=== PATIENT | female | born 1980 | race Caucasian/White ===

== ENCOUNTER 2022-05-15 08:41 | Emergency (ER) | payer BC, SELFPAY ==
--- NOTE | 2022-05-15 08:53 | EXP.UTC ---
Discharge Plan Disposition Patient Disposition: Home, Self-Care Condition: Good Prescriptions Prescriptions: New amoxicillin [amoxicillin] 875 mg tablet 875 mg PO Q12H Qty: 20 0RF methylprednisolone 4 mg Tablets,Dose Pack 4 mg PO DIRECTED Qty: 21 0RF ondansetron 4 mg Tablet,Disintegrating 4 mg PO Q8H PRN (Reason: Nausea) Qty: 20 0RF Referrals Follow up/Referrals: Provider,Referral, MD [Primary Care Provider] - See instructions Activity Restrictions/Add. Instructions Additional Instructions/Restrictions: Drink plenty of fluids. Take tylenol or ibuprofen for pain or fever. Take the medications as directed. Follow up with your regular doctor. GO TO THE ER FOR ANY WORSENING SYMPTOMS Clinical Impressions Clinical Impression: Strep throat Instructions Patient Instructions: Strep Throat, DI for Strep Throat Discharge ED [place] [facility] [place] General Stated complaint: Sore throat, tired, DO, BA Time Seen by Provider: 05/15/22 08:53 History of Present Illness Provider Complaint: She states that for the past 2 days she has had a sore throat, worsening fatigue, chills, and malaise. Her son was diagnosed with strep throat earlier this week. Related Data Previous Rx's Medication Instructions Recorded amoxicillin 875 mg tablet 875 mg PO Q12H #20 tabs 05/15/22 methylprednisolone 4 mg tablets in 4 mg PO DIRECTED #21 tabs 05/15/22 a dose pack ondansetron 4 mg disintegrating 4 mg PO Q8H PRN Nausea #20 tabs 05/15/22 tablet Allergies Allergy/AdvReac Type Severity Reaction Status Date / Time No Known Allergies Allergy Verified 05/15/22 09:12 [facility] Social History Smoking Status: Current every day smoker alcohol intake: never current occupational status: employed Travel in the last 8 weeks: None ROS Obtained: Yes All systems reviewed & no additional complaints except as documented Constitutional Constitutional: Reports chills and Reports fever(s) Eyes Eyes: Denies eye discharge ENT Ears, Nose, Mouth, and Throat: Reports as per HPI Cardiovascular Cardiovascular: Denies chest pain Respiratory Respiratory: Denies chest congestion and Reports cough Gastrointestinal Gastrointestingal: Reports nausea; Denies abdominal pain, constipation, cramping, diarrhea or vomiting Musculoskeletal Musculoskeletal: Denies arthralgias Integumentary/Breasts Skin/Breast: Denies rash Neurologic Neurologic: Denies paresthesias Physical Exam General General appearance: alert and in no apparent distress Head Head exam: atraumatic, normocephalic and normal inspection Eye Eye exam: Present normal appearance, PERRL and EOMI ENT ENT exam: Present mucous membranes moist and normal external ear exam Expanded ENT Exam TM/Canal exam: Bilateral TM: erythema and bulging Nose exam: Absent sinus tenderness Mouth exam: Present normal external inspection; Absent drooling Teeth exam: Present normal inspection Throat exam: Present tonsillar erythema, tonsillomegaly and tonsillar exudate Neck Neck exam: Present normal inspection, full ROM and trachea midline; Absent tenderness, meningismus or lymphadenopathy Chest Chest inspection: Present normal inspection and symmetric chest wall rise; Absent tenderness Respiratory Respiratory exam: Present normal lung sounds bilaterally; Absent respiratory distress, wheezes or stridor Cardiovascular Cardiovascular exam: Present regular rate and normal rhythm; Absent systolic murmur or diastolic murmur Abdominal Exam Abdominal exam: Present soft and normal bowel sounds; Absent distention, tenderness, guarding, rebound or rigidity Extremities Exam Extremities exam: Present normal inspection and normal capillary refill; Absent calf tenderness Back Exam Back exam: Present normal inspection and full ROM; Absent tenderness, CVA tenderness (R) or CVA tenderness (L) Neurological Exam Neurological exam:
[2022-05-15 09:10] VITALS: BP 155/75; PULSE 102; RESP 18; TEMP 37; O2SAT 99; BMI 34.9
[2022-05-15 09:16] LABS: UTC Strep Screen (Rapid) Negative (Negative)
[2022-05-15 09:41] VITALS: BP 155/75; PULSE 102; RESP 18; TEMP 37
== END 2022-05-15 09:49 | disposition home or self-care (01) ==
PROVIDERS: Emergency Provider Nurse Practitioner Family
DX: J02.9 Acute pharyngitis, unspecified (principal)
CPT/HCPCS: 87880; 99212; G0463

== ENCOUNTER 2022-06-29 07:59 | Emergency (ER) | payer BC, SELFPAY ==
[2022-06-29 08:05] VITALS: BP 134/85; PULSE 95; RESP 18; TEMP 36.7; O2SAT 97; BMI 31.4
--- NOTE | 2022-06-29 08:22 | EXP.UTC ---
Discharge Plan Disposition Patient Disposition: Home, Self-Care Condition: Good Prescriptions Prescriptions: New penicillin V potassium 500 mg tablet 500 mg PO BID 10 Days Qty: 20 0RF No Action amoxicillin [amoxicillin] 875 mg tablet 875 mg PO Q12H Qty: 20 0RF methylprednisolone 4 mg Tablets,Dose Pack 4 mg PO DIRECTED Qty: 21 0RF ondansetron 4 mg Tablet,Disintegrating 4 mg PO Q8H PRN (Reason: Nausea) Qty: 20 0RF Referrals Follow up/Referrals: Krishna Suggs MD [Primary Care Provider] - See instructions Activity Restrictions/Add. Instructions Additional Instructions/Restrictions: *Monitor Temp, Over the counter Motrin or Tylenol as directed/as needed Tylenol every 4 hours and Motrin every 6 hours (as long as your family doctor has told you that you can take it) for fever or pain. and straight to ER if unable to lower temp less than 101.0 after medication given *Warm salt water gargles may help to soothe the throat *Throat Lozenges? *Warm fluids like tea with honey may help to soothe the throat? *Sleep elevated *Humidifier/Vaporizer *If you did not take Penicillin shot or was unable to, start taking antibiotic immediately and make sure that you take it for the FULL length of time although you should start to feel better in 24-48 hours *change toothbrush and toothpaste 24-48 hours after starting to take antibiotics so you do not reinfect yourself Monitor Temp. Tylenol and/or Ibuprofen as needed. ER if fever is no less than 101 despite alternating Tylenol and Ibuprofen * Encourage fluids, water, Gatorade, powerade, pedialyte if infant/toddler/or child *Cold fluids, popsicles and ice cream may feel good on his throat Follow up IMMEDIATELY for new or worsening symptoms or no Noticeable improvement over the next 48-72 hours. 911 for difficulty breathing or swallowing Clinical Impressions Clinical Impression: Strep throat Stand Alone Forms Stand Alone Forms: Work/School Release Instructions Patient Instructions: DI for Strep Throat, Strep Throat, Penicillin V Potassium Discharge ED Provider: Bree Vicente [facility] – [place] HPI General Stated complaint: possible strep Time Seen by Provider: 06/29/22 08:22 History of Present Illness Provider Complaint: Patient state that son was dx with strep throat yesterday States she woke up this morning with her throat sore and white patchy like areas on her tonsils and feels like it does when she has strep throat Related Data Previous Rx's Medication Instructions Recorded amoxicillin 875 mg tablet 875 mg PO Q12H #20 tabs 05/15/22 methylprednisolone 4 mg tablets in 4 mg PO DIRECTED #21 tabs 05/15/22 a dose pack ondansetron 4 mg disintegrating 4 mg PO Q8H PRN Nausea #20 tabs 05/15/22 tablet penicillin V potassium 500 mg 500 mg PO BID 10 days #20 tabs 06/29/22 tablet Allergies Allergy/AdvReac Type Severity Reaction Status Date / Time No Known Allergies Allergy Verified 05/15/22 09:12 [facility] Surgical History (Updated 06/29/22 @ 08:34 by Cathi Marsh RN) History of section History of elbow surgery History of hysterectomy History of oral surgery History of shoulder surgery Social History (Updated 05/18/22 @ 00:02 by Keaton Barahona APRN) Smoking Status: Current every day smoker alcohol intake: never current occupational status: employed Travel in the last 8 weeks: None ROS Obtained: Yes All systems reviewed & no additional complaints except as documented and Yes Systems reviewed as appropriate & no additional complaints except as documented Constitutional Constitutional: Reports system reviewed and no additional complaints, except as documented, Reports as per HPI and Reports headache(s) ENT Ears, Nose, Mouth, and Throat: Reports system reviewed and no additional complaints, except as documented, Reports as per HPI, Reports headache(s) and Reports sore throat Cardiovascular Cardiovascu
[2022-06-29 08:30] LABS: UTC Strep Screen (Rapid) Positive (Negative)
[2022-06-29 08:38] VITALS: BP 134/85; PULSE 95; RESP 18; TEMP 36.7; O2SAT 97
== END 2022-06-29 08:41 | disposition home or self-care (01) ==
PROVIDERS: Emergency Provider Nurse Practitioner; PCP Internal Medicine Adolescent Medicine
DX: J02.0 Streptococcal pharyngitis (principal)
CPT/HCPCS: 87880; 99212; G0463

== ENCOUNTER 2023-06-20 08:01 | Emergency (ER) | payer BC, SELFPAY ==
[2023-06-20 08:15] VITALS: BP 144/79; PULSE 101; RESP 19; TEMP 37.2; O2SAT 98
--- NOTE | 2023-06-20 08:24 | EXP.UTC ---
Discharge Plan Disposition Patient Disposition: Home, Self-Care Condition: Good Prescriptions Prescriptions: New amoxicillin 875 mg tablet 875 mg PO BID 10 Days Qty: 20 0RF No Action cetirizine [Zyrtec] 10 mg Tablet 10 mg PO DAILY omeprazole 40 mg capsule,delayed release(DR/EC) 40 mg PO DAILY Patient Comments: TAKE 1 CAPSULE BY MOUTH ONCE DAILY pramipexole 0.75 mg tablet 0.75 mg PO DAILY Patient Comments: TAKE 1 TABLET BY MOUTH EVERY DAY Referrals Follow up/Referrals: Krishna Suggs MD [Primary Care Provider] - See instructions Activity Restrictions/Add. Instructions Additional Instructions/Restrictions: *Monitor Temp, Over the counter Motrin or Tylenol as directed/as needed Tylenol every 4 hours and Motrin every 6 hours (as long as your family doctor has told you that you can take it) for fever or pain. and straight to ER if unable to lower temp less than 101.0 after medication given *Warm salt water gargles may help to soothe the throat *Throat Lozenges? *Warm fluids like tea with honey may help to soothe the throat? *Sleep elevated *Humidifier/Vaporizer Your throat swab was sent for culture. Those results are typically sent to your primary care. Be sure to follow up in 2-3 days with your family doctor/primary care physician if no improvement so they can review those result and treat if necessary. If you don?t have a primary care doctor, I recommend you get one but in the mean time, you will have to return to a walk in clinic Follow up IMMEDIATELY for new or worsening symptoms or no Noticeable improvement over the next 48-72 hours. 911 for difficulty breathing or swallowing Clinical Impressions Clinical Impression: Bacterial tonsillitis Instructions Patient Instructions: Sore Throat, Amoxicillin Discharge ED Provider: Bree Vicente [facility] General Stated complaint: sore throat,cough,body aches Mode of Arrival: Ambulatory Source of Information: Patient Limitations: No Limitations Time Seen by Provider: 06/20/23 08:24 Description of Symptoms (Recalled from Triage Doc. by RN): PATIENT C/O SORE THROAT, BODY ACHES, AND SHARP PAIN THROUGH TONSIL X 4-5 DAYS HEENT Symptoms (Recalled from RN notes): Yes Resp Symptoms (Recalled from RN notes): No Skin Symptoms (Recalled from RN notes): No MS Symptoms (Recalled from RN notes): No Functional Status (Recalled from RN notes): WNL History of Present Illness Provider Complaint: Patient states that she gets strep throat several times a year States that for the last 3-4 days she has been having worsening sore throat, swollen tonsils that at times feels like it has pain that shoots through it and sinus congestion States that this morning her throat was hurting worse so she came in Related Data Home Medications Medication Instructions Recorded Confirmed cetirizine 10 mg tablet (Zyrtec) 10 mg PO DAILY 06/20/23 06/20/23 omeprazole 40 mg capsule,delayed 40 mg PO DAILY 06/20/23 06/20/23 release pramipexole 0.75 mg tablet 0.75 mg PO DAILY 06/20/23 06/20/23 Previous Rx's Medication Instructions Recorded amoxicillin 875 mg tablet 875 mg PO BID 10 days #20 tabs 06/20/23 Allergies Allergy/AdvReac Type Severity Reaction Status Date / Time No Known Allergies Allergy Verified 05/15/22 09:12 Worker's Comp Is this a Worker's Comp case?: No [facility] Disclaimer: The information contained in this section may have been updated after the patient was seen, as this information can be updated by other users. 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 (Updated 06/20/23 @ 08:35 by Bree Vicente APRN) Anemia Anxiety Depression Surgical History History of section History of elbow surgery History of hysterectomy History of oral surgery History of shoulder surgery Social History (Updated 06/29/22 @ 08:34 by Cathi Marsh RN) [place]
[2023-06-20 08:31] LABS: UTC Strep Screen (Rapid) Negative (Negative)
[2023-06-20 08:41] VITALS: BP 144/79; PULSE 101; RESP 19; TEMP 37.2; O2SAT 98
== END 2023-06-20 08:44 | disposition home or self-care (01) ==
PROVIDERS: Emergency Provider Nurse Practitioner; PCP Internal Medicine Adolescent Medicine
DX: J03.80 Acute tonsillitis due to other specified organisms (principal); F17.210 Nicotine dependence, cigarettes, uncomplicated; R05.9 Cough, unspecified
CPT/HCPCS: 87880; 99212; 99214; G0463

== ENCOUNTER 2023-08-07 08:07 | Emergency (ER) | payer BC, SELFPAY ==
[2023-08-07 08:15] VITALS: BP 146/94; PULSE 102; RESP 20; TEMP 36.8; O2SAT 100; BMI 30.2
[2023-08-07] MEDS: LIDOCAINE 2% VISCOUS SOL 15ML UDC 15 ML PO (08:28)
[2023-08-07] MEDS: TETRACAINE/BENZOCAINE/BUTAMBEN 56 GM SPRAY TP (08:29)
--- NOTE | 2023-08-07 08:40 | ED_ITS ---
Discharge Plan Disposition Patient Disposition: Home, Self-Care Condition: Good Prescriptions Prescriptions: New amoxicillin [amoxicillin] 875 mg tablet 875 mg PO Q12H Qty: 20 0RF ibuprofen [IBU] 800 mg tablet 800 mg PO Q8HP PRN (Reason: Moderate Pain) Qty: 30 0RF No Action omeprazole 40 mg capsule,delayed release(DR/EC) 40 mg PO DAILY Patient Comments: TAKE 1 CAPSULE BY MOUTH ONCE DAILY pramipexole 0.75 mg tablet 0.75 mg PO DAILY Patient Comments: TAKE 1 TABLET BY MOUTH EVERY DAY Referrals Follow up/Referrals: Krishna Suggs MD [Primary Care Provider] - See instructions Activity Restrictions/Add. Instructions Additional Instructions/Restrictions: Take the medications as directed. Follow up with your regular doctor. Follow up with your dentist. GO TO THE ER FOR ANY WORSENING SYMPTOMS Clinical Impressions Clinical Impression: Pain, dental, Abscess, dental Instructions Patient Instructions: Tooth Abscess, DI for Tooth Abscess, DI for Dental Pain Discharge ED Provider: Keaton Barahona [facility] General Stated complaint: left upper dental pain Mode of Arrival: Ambulatory Source of Information: Patient Limitations: No Limitations Time Seen by Provider: 08/07/23 08:40 Description of Symptoms (Recalled from Triage Doc. by RN): PATIENT C/O PAIN IN UPPER LEFT BACK TOOTH AND JAW. SHE REPORTS GETTING A FILLING IN THAT TOOTH APPROX 6 MONTHS AGO HEENT Symptoms (Recalled from RN notes): Yes Resp Symptoms (Recalled from RN notes): No Skin Symptoms (Recalled from RN notes): No MS Symptoms (Recalled from RN notes): No Functional Status (Recalled from RN notes): WNL History of Present Illness Provider Complaint: She reports worsening left upper jaw dental pain. Related Data Home Medications Medication Instructions Recorded Confirmed omeprazole 40 mg capsule,delayed 40 mg PO DAILY 06/20/23 08/07/23 release pramipexole 0.75 mg tablet 0.75 mg PO DAILY 06/20/23 08/07/23 Previous Rx's Medication Instructions Recorded amoxicillin 875 mg tablet 875 mg PO Q12H #20 tabs 08/07/23 ibuprofen 800 mg tablet (IBU) 800 mg PO Q8HP PRN Moderate Pain 08/07/23 #30 tabs Allergies Allergy/AdvReac Type Severity Reaction Status Date / Time No Known Allergies Allergy Verified 05/15/22 09:12 Worker's Comp Is this a Worker's Comp case?: No [facility] Disclaimer: The information contained in this section may have been updated after the patient was seen, as this information can be updated by other users. 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 (Updated 08/07/23 @ 08:45 by Keaton Barahona APRN) Anemia Anxiety Depression Surgical History History of section History of elbow surgery History of hysterectomy History of oral surgery History of shoulder surgery Social History (Updated 06/29/22 @ 08:34 by Cathi Marsh RN) Smoking Status: Current every day smoker alcohol intake: never current occupational status: employed Travel in the last 8 weeks: None ROS Obtained: Yes All systems reviewed & no additional complaints except as documented Constitutional Constitutional: Denies chills and Denies fever(s) Eyes Eyes: Denies eye discharge ENT Ears, Nose, Mouth, and Throat: Reports as per HPI, Denies dizziness, Denies otalgia and Denies sore throat Cardiovascular Cardiovascular: Denies chest pain Respiratory Respiratory: Denies shortness of breath, Denies chest congestion, Denies cough, Denies stridor and Denies wheezing Gastrointestinal Gastrointestingal: Denies nausea or vomiting Musculoskeletal Musculoskeletal: Reports system reviewed and no additional complaints, except as documented and Denies arthralgias Integumentary/Breasts Skin/Breast: Denies rash Neurologic Neurologic: Denies dizziness and Denies paresthesias Allergic/Immunologic Allergic/Immunologic: Denies wheezing Physical Exam General General appearance: alert and in no apparent distress Head Head exam: atraumatic, normocephalic and normal inspection Eye Eye exam: Present normal appearance, PERRL and EOMI ENT ENT exam: Present mucous membranes moist, TM's normal bilaterally and normal external ear exam Expanded ENT Exam Nose exam: Absent sinus tenderness Nasal speculum exam: Bilateral: normal Mouth exam: Present normal external inspection; Absent drooling or tongue swelling Teeth exam: Present dental tenderness # and gingival swelling Throat exam: Present normal inspection Neck Neck exam: Present normal inspection, full ROM and trachea midline; Absent meningismus or lymphadenopathy Chest Chest inspection: Present normal inspection and symmetric chest wall rise; Absent tenderness Respiratory Respiratory exam: Present normal lung sounds bilaterally; Absent respiratory distress Cardiovascular Cardiovascular exam: Present regular rate and normal rhythm; Absent JVD Abdominal Exam Abdominal exam: Present soft and normal bowel sounds; Absent distention, tenderness or guarding Extremities Exam Extremities exam: Present normal inspection, full ROM and normal capillary refill; Absent calf tenderness Back Exam Back exam: Present normal inspection; Absent tenderness Neurological Exam Neurological exam: Present alert and oriented X3 Psychiatric Psychiatric exam: Present normal affect and normal mood Skin Skin exam: Present warm, dry, intact and normal color Lymphatic Lymphatic Findings: no adenopathy Medical Decision Making Medical Records Medical records reviewed: No I reviewed the patient's medical records. [place] Inquiry Pt receiving controlled substance: No Vital Signs: 08/07/23 08:15 Temperature 98.3 F Temperature Source Oral Pulse Rate [Left Brachial] 102 H Respiratory Rate 20 Blood Pressure [Left Arm] 146/94 H Blood Pressure Mean [Left Arm] 111 Blood Pressure Source [Left Arm] Automatic Cuff Blood Pressure Position [Left Arm] Sitting 02 Sat by Pulse Oximetry 100 Oxygen Delivery Method Room Air Orders (Tests/Meds): ED MEDICATIONS Discontinued Medications Generic Name Dose Route Start Last Admin Trade Name Zora PRN Reason Stop Dose Admin Benzocaine/Butamben/Tetracaine HCl 1 gm 08/07/23 08:27 08/07/23 08:29 Tetracaine/Benzocaine/Butamben 56 Gm Marshall TP 08/07/23 08:28 1 gm ONCE ONE Administration Ketorolac Tromethamine 60 mg 08/07/23 08:38 Ketorolac 60mg/2ml Vial IM 08/07/23 08:39 ONCE ONE Lidocaine HCl 15 ml 08/07/23 08:27 08/07/23 08:28 Lidocaine 2% Viscous Nhung 15ml Udc PO 08/07/23 08:28 15 ml ONCE ONE Administration
[2023-08-07 08:42] VITALS: BP 146/94; PULSE 102; RESP 20; TEMP 36.8; O2SAT 100
[2023-08-07] MEDS: KETOROLAC 60MG/2ML VIAL 60 MG IM (08:42)
== END 2023-08-07 08:49 | disposition home or self-care (01) ==
PROVIDERS: Emergency Provider Nurse Practitioner Family; PCP Internal Medicine Adolescent Medicine
DX: K04.7 Periapical abscess without sinus (principal); K08.89 Other specified disorders of teeth and supporting structures; R68.84 Jaw pain; F17.210 Nicotine dependence, cigarettes, uncomplicated
CPT/HCPCS: 96372; 99212; 99214; G0463

== ENCOUNTER 2023-08-24 10:26 | Emergency (ER) | payer BC, SELFPAY ==
[2023-08-24 10:27] VITALS: BP 147/91; PULSE 112; RESP 18; TEMP 36.7; O2SAT 99; BMI 23.0
[2023-08-24 10:29] VITALS: BP 147/91; PULSE 106; O2SAT 100
--- NOTE | 2023-08-24 10:30 | ECG_ITS ---
APPROVED REPORT Exam: Resting ECG HR:101 bpm ECG Measurements Heart Rate 101 AXES WV 144 P 56 QRSd 83 QRS 22 QT 328 T 58 QTc 386 Conclusion SINUS TACHYCARDIA ABNORMAL RHYTHM ECG UNCONFIRMED REPORT Electronically signed by : Krishna Suggs MD 08/25/2023 08:37:44
[2023-08-24 10:32] VITALS: BP 156/89; PULSE 89; O2SAT 99
--- NOTE | 2023-08-24 10:41 | XR_ITS ---
FINAL REPORT CLINICAL HISTORY: dyspnea, chest discomfort FINDINGS: SINGLE-VIEW CHEST The heart size is normal. The mediastinum is normal. The lungs are clear. There is no pneumothorax. IMPRESSION: No acute cardiopulmonary process. Reviewed, Interpreted and Dictated by Tal Curran III, MD Transcribed by Whit Aaron Authenticated and [facility]
--- NOTE | 2023-08-24 10:46 | HMH.EDCP ---
Discharge Plan Disposition Patient Disposition: Home, Self-Care Prescriptions Prescriptions: No Action amoxicillin [amoxicillin] 875 mg tablet 875 mg PO Q12H Qty: 20 0RF ibuprofen [IBU] 800 mg tablet 800 mg PO Q8HP PRN (Reason: Moderate Pain) Qty: 30 0RF omeprazole 40 mg capsule,delayed release(DR/EC) 40 mg PO DAILY Patient Comments: TAKE 1 CAPSULE BY MOUTH ONCE DAILY pramipexole 0.75 mg tablet 0.75 mg PO DAILY Patient Comments: TAKE 1 TABLET BY MOUTH EVERY DAY Referrals Follow up/Referrals: Provider,Referral, MD [Primary Care Provider] - See instructions Activity Restrictions/Add. Instructions Additional Instructions/Restrictions: No evidence of an acute cardiopulmonary emergency. Your symptoms significant improved with administration of medications to treat gastroesophageal reflux disease or esophagitis/gastritis. This is likely the case in the setting of your chronic smoking. I would recommend you stop smoking as this could have progressive issues moving forward. Please follow-up with primary care doctor as needed return with any worsening symptoms. Clinical Impressions Clinical Impression: Chest pain Discharge ED Provider: James Thao HPI General Chief Complaint: Chest Pain Stated Complaint: Chest Pain Time Seen by Provider: 08/24/23 10:32 Mode of Arrival: Ambulatory Source of Information: Patient Limitations: No Limitations Description of Symptoms (Recalled from ER Triage Doc. by RN): pt presents to ED with c/o chest discomfort. pt reports symptoms began the night before last. located in middle of chest. History of Present Illness HPI narrative: Patient is a 42-year-old female presenting today with chest pain. Has no history of any cardiopulmonary or abdominal pathology in the past and states that she has had ongoing unchanged symptoms since the night before last. This is nonexertional. Nonradiating. Not associated with dyspnea or diaphoresis. She is a chronic smoker but has no history of GERD that she is aware of. Does not drink alcohol. Also states has been having some palpitations associated with this currently she is not feeling no symptoms. No fevers or chills or cough. She did have pharyngitis 3 weeks ago with a negative strep test which was presumably viral. She denies any significant leg swelling, prolonged immobilizations, history of DVT or PE, history of malignancy, hemoptysis, any exogenous hormone use, etc. Related Data Home Medications Medication Instructions Recorded Confirmed omeprazole 40 mg capsule,delayed 40 mg PO DAILY 06/20/23 08/07/23 release pramipexole 0.75 mg tablet 0.75 mg PO DAILY 06/20/23 08/07/23 Previous Rx's Medication Instructions Recorded amoxicillin 875 mg tablet 875 mg PO Q12H #20 tabs 08/07/23 ibuprofen 800 mg tablet (IBU) 800 mg PO Q8HP PRN Moderate Pain 08/07/23 #30 tabs Allergies Allergy/AdvReac Type Severity Reaction Status Date / Time No Known Allergies Allergy Verified 05/15/22 09:12 [facility] Disclaimer: The information contained in this section may have been updated after the patient was seen, as this information can be updated by other users. 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 (Updated 08/24/23 @ 11:51 by James Thao MD) Anemia Anxiety Depression Surgical History History of section History of elbow surgery History of hysterectomy History of oral surgery History of shoulder surgery Social History (Updated 06/29/22 @ 08:34 by Cathi Marsh RN) Smoking Status: Current every day smoker alcohol intake: never current occupational status: employed Travel in the last 8 weeks: None ROS Obtained: Yes All systems reviewed & no additional complaints except as documented Physical Exam General General appearance: alert and in no apparent distress Respiratory Respiratory exam: Present normal lung sounds bilaterally; Absent respiratory distress, wheezes or stridor Cardiovascular Cardiovascular exam: Present normal rhythm and tachycardia Abdominal Exam Abdominal exam: Present soft; Absent distention or tenderness Neurological Exam Neurological exam: Present oriented X3 HEART Score HEART Score HEART Score assessment performed?: Yes History (anamnesis): Slightly suspicious ECG: Non-specific disturbance Age: <45 years Risk factors: 1-2 risk factors Troponin: </= normal limit HEART Score: 2 Critical Care Critical Care Time Critical Care Time: No Medical Decision Making Marshall Inquiry Pt receiving controlled substance: No Vital Signs Vital Signs: 08/24/23 10:27 08/24/23 10:29 08/24/23 10:32 Temperature 98.1 F Temperature Source Oral Pulse Rate 106 H 89 Pulse Rate [Left Radial] 112 H Respiratory Rate 18 Blood Pressure 147/91 H 156/89 H Blood Pressure [Right Arm] 147/91 H Blood Pressure Mean 96 112 Blood Pressure Mean [Right Arm] 109 02 Sat by Pulse Oximetry 99 100 99 Oxygen Delivery Method Room Air 08/24/23 11:01 Temperature Temperature Source Pulse Rate 84 Pulse Rate [Left Radial] Respiratory Rate Blood Pressure 133/80 Blood Pressure [Right Arm] Blood Pressure Mean Blood Pressure Mean [Right Arm] 02 Sat by Pulse Oximetry 97 Oxygen Delivery Method Room Air Lab Data Lab results reviewed: Yes I reviewed the patient's lab results. Labs: Lab Results 08/24/23 10:33: WBC 12.6 H, RBC 5.47 H, Hgb 15.8, Hct 49.6 H, MCV 90.8, MCH 28.8, MCHC 31.7 L, RDW 13.2, Plt Count 372, MPV 6.5 L, Neut % (Auto) 57.8, Lymph % (Auto) 35.2, [place] % (Auto) 4.3, Eos % (Auto) 2.0, Baso % (Auto) 0.6, Neut # (Auto) 7.3, Lymph # (Auto) 4.4, [place] # (Auto) 0.5, Eos # (Auto) 0.3, Baso # (Auto) 0.1, PT 10.1, INR 0.93, D-Dimer 0.38, Sodium 138, Potassium 4.0, Chloride 107, Carbon Dioxide 23, Anion Gap 12.0, BUN 12, Creatinine 0.90, Estimated Creat Clear 95, Estimated GFR 68, Est GFR ( Amer) 83, Glucose 98, Calcium 8.5, Magnesium 1.9, Total Bilirubin 0.6, AST 33, ALT 22, Alkaline Phosphatase 59, Troponin I < 0.01, Total Protein 7.1, Albumin 4.0, Globulin 3.1, Albumin/Globulin Ratio 1.3, Lipase 145 08/24/23 10:33 08/24/23 10:33 Response Orders (Tests/Meds): ED MEDICATIONS Generic Name Dose Route Start Last Admin Trade Name Freq PRN Reason Stop Dose Admin Sodium Chloride 10 ml 08/24/23 10:41 08/24/23 10:49 Sodium Chloride 0.9% 10ml Flush Syringe IV 09/23/23 10:40 10 ml NEEDED PRN Administration Maintain IV Site Sodium Chloride 8 ml 08/24/23 10:41 Sodium Chloride 0.9% 10ml Vial IV 09/23/23 10:40 NEEDED PRN dilute pepcid Discontinued Medications Generic Name Dose Route Start Last Admin Trade Name Freq PRN Reason Stop Dose Admin Belladonna Alkaloids 60 ml 08/24/23 10:41 08/24/23 10:49 Belladonna Alkaloids 60 Ml Ml PO 08/24/23 10:42 60 ml ONCE ONE Administration Famotidine 20 mg 08/24/23 10:41 08/24/23 10:49 Famotidine 20mg/2ml Vial IV 08/24/23 10:42 20 mg ONCE ONE Administration ORDERS Category Date Time Status CXR --portable [XR chest portable] Stat Exams 08/24/23 10:41 Taken CBC w/Auto Diff [Complete Blood Count Auto Diff] Stat Lab 08/24/23 10:33 Completed CMP [Comprehensive Metabolic Panel] Stat Lab 08/24/23 10:33 Completed D-Dimer Stat Lab 08/24/23 10:33 Completed Lipase Stat Lab 08/24/23 10:33 Completed Magnesium Stat Lab 08/24/23 10:33 Completed PT INR [Prothrombin Time INR] Stat Lab 08/24/23 10:33 Completed Trop I [Troponin I] Stat Lab 08/24/23 10:33 Completed Troponin I Q3H Lab 08/24/23 13:45 Ordered Troponin I Q3H Lab 08/24/23 16:45 Ordered ECG initial Besson Routine Y 08/24/23 10:30 Completed MDM Narrative Medical Decision Narrative: 42-year-old female presents today with epigastric/substernal chest pressure which is nonradiating and has been constant for the last night and a half. EKG was unremarkable. A single troponin will be adequate to rule out myocardial injury or acute coronary syndrome. Heart score is low. She is mildly tachycardic cannot use PERC to rule out pulmonary embolism therefore we will get a D-dimer with a cutoff using 1.0 and years criteria for a CT PE. Also the differential would be pneumonia, pneumothorax, gastrointestinal pathology such as GERD in the setting of chronic smoking, pancreatitis, etc. Will get basic labs chest x-ray single troponin D-dimer administer Pepcid and GI cocktail and reassess. EKG performed which appears interpreted shows a ventricular rate of 101 sinus tachycardia no acute ischemic changes noted normal axis no conduction abnormalities is nondiagnostic. Chest x-ray performed which I personally interpreted shows no acute cardiopulmonary emergency. Labs unremarkable including undetectably low troponin and D-dimer cutoff for CT PE. This is not consistent with acute coronary syndrome or pulmonary embolism. Patient felt significantly better after GI cocktail and Pepcid suggesting this is likely gastrointestinal in nature. I suspect this is most likely gastritis and/or esophagitis associated with chronic smoking. She has been advised to stop smoking follow-up primary care doctor as needed. Serial exams benign.
[2023-08-24] MEDS: FAMOTIDINE 20MG/2ML VIAL 20 MG IV (10:49)
[2023-08-24] MEDS: BELLADONNA ALKALOIDS 60 ML ML PO (10:49)
[2023-08-24] MEDS: SODIUM CHLORIDE 0.9% 10ML FLUSH SYRINGE 10 ML IV (10:49)
[2023-08-24 10:50] LABS: Basophils # 0.1 K/mm3 (0-0.2); Basophils % 0.6 % (0.1-2.0); Eosinophils # 0.3 K/mm3 (0.0-0.4); Hematocrit 49.6 % (37.0-47.0); Hemoglobin 15.8 g/dL (12.2-16.2); Lymphocytes # 4.4 K/mm3 (0.7-4.5); Lymphocytes % 35.2 % (10-50); Mean Corpuscular HGB Conc 31.7 g/dL (31.8-35.4); Mean Corpuscular Hemoglobin 28.8 pg (27.0-31.2); Mean Corpuscular Volume 90.8 fl (81-99); Mean Platelet Volume 6.5 fl (7.4-10.4); Monocytes # 0.5 K/mm3 (0.1-1.0); Monocytes % 4.3 % (1.7-9.3); Neutrophils # 7.3 K/mm3 (1.8-7.8); Neutrophils % 57.8 % (37.0-80.0); Platelet Count 372 K/mm3 (142-424); Red Blood Count 5.47 M/mm3 (4.20-5.40); Red Cell Distribution Width 13.2 % (11.5-17.5); White Blood Count 12.6 K/mm3 (4.8-10.8)
[2023-08-24 10:56] LABS: Lipase 145 U/L (23-300); Magnesium 1.9 mg/dl (1.6-2.3)
[2023-08-24 11:00] LABS: INR 0.93 (0.9-1.1); Prothrombin Time 10.1 seconds (10.1-12.5)
[2023-08-24 11:01] VITALS: BP 133/80; PULSE 84; O2SAT 97
[2023-08-24 11:13] LABS: Chloride 107 mmol/L (98-107); Sodium 138 mmol/L (136-145)
[2023-08-24 11:16] LABS: Alanine Aminotransferase 22 U/L (12-78); Albumin/Globulin Ratio 1.3 (1.1-1.8); Alkaline Phosphatase 59 U/L (38-126); Aspartate Amino Transferase 33 U/L (14-36); Bilirubin,Total 0.6 mg/dl (0.2-1.3); Blood Urea Nitrogen 12 mg/dl (7-17); Calcium 8.5 mg/dl (8.4-10.2); Carbon Dioxide 23 mmol/L (22.0-30.0); Creatinine Clearance Estimated 95 mL/min (50-200); Estimated Glomerular Filt Rate 68 ml/min (>60); GFR (African American) 83 ML/MIN (>60); Globulin 3.1 g/dL (1.3-3.2); Glucose 98 mg/dl (74-100); Total Protein,Serum 7.1 g/dl (6.3-8.2)
[2023-08-24 11:23] LABS: D-Dimer 0.38 ug/mL (0.0-0.5)
[2023-08-24 11:31] LABS: Troponin I < 0.01 ng/ml (0.00-0.034)
[2023-08-24 11:55] VITALS: BP 119/78; PULSE 103; RESP 17; TEMP 36.7
== END 2023-08-24 11:55 | disposition home or self-care (01) ==
PROVIDERS: Emergency Provider Student in an Organized Health Care Education/Training Program
DX: R07.2 Precordial pain (principal); R00.0 Tachycardia, unspecified; R10.13 Epigastric pain; F17.210 Nicotine dependence, cigarettes, uncomplicated; F32.A Depression, unspecified; F41.1 Generalized anxiety disorder
CPT/HCPCS: 71045; 80053; 83690; 83735; 84484; 85025; 85378; 85610; 93005; 96374; 99285

== ENCOUNTER 2024-01-16 11:22 | Emergency (ER) | payer BC, SELFPAY ==
[2024-01-16 11:28] VITALS: BMI 24.2
--- NOTE | 2024-01-16 11:29 | XR_ITS ---
PROCEDURE INFORMATION: Exam: XR Right Knee Exam date and time: 01/16/2024 11:35 AM Age: 43 years old Clinical indication: Pain; Knee; Right; Additional info: Pain/swelling TECHNIQUE: Imaging protocol: Radiologic exam of the right knee. Views: 3 views. COMPARISON: No relevant prior studies available. FINDINGS: Bones/joints: Normal. Soft tissues: Normal. IMPRESSION: No acute findings.
[2024-01-16 12:00] VITALS: BP 151/88; PULSE 114; RESP 20; TEMP 36.8; O2SAT 98; BMI 31.4
--- NOTE | 2024-01-16 12:26 | ED_ITS ---
Discharge Plan Disposition Patient Disposition: Home, Self-Care Condition: Good Prescriptions Prescriptions: New prednisone 20 mg tablet 20 mg PO BID Qty: 10 0RF No Action amoxicillin [amoxicillin] 875 mg tablet 875 mg PO Q12H Qty: 20 0RF ibuprofen [IBU] 800 mg tablet 800 mg PO Q8HP PRN (Reason: Moderate Pain) Qty: 30 0RF omeprazole 40 mg capsule,delayed release(DR/EC) 40 mg PO DAILY Patient Comments: TAKE 1 CAPSULE BY MOUTH ONCE DAILY pramipexole 0.75 mg tablet 0.75 mg PO DAILY Patient Comments: TAKE 1 TABLET BY MOUTH EVERY DAY Referrals Follow up/Referrals: Krishna Suggs MD [Primary Care Provider] - See instructions Clinical Impressions Clinical Impression: Acute knee pain Instructions Patient Instructions: DI for Knee Pain Discharge ED Provider: Jerilyn ([facility] [facility] [place] General Stated complaint: right knee pain/swelling Mode of Arrival: Ambulatory Source of Information: Patient Limitations: No Limitations Time Seen by Provider: 01/16/24 12:26 Description of Symptoms (Recalled from Triage Doc. by RN): PATIENT STATES SHE WENT BOWLING YESTERDAY AND LAST NIGHT STARTED HAVING PAIN AND SWELLING IN HER RIGHT KNEE. NO KNOWN INJURY. SHE DOES REPORT A HISTORY WITH PROBLEMS WITH HER RIGHT KNEE HEENT Symptoms (Recalled from RN notes): No Resp Symptoms (Recalled from RN notes): No Skin Symptoms (Recalled from RN notes): No MS Symptoms (Recalled from RN notes): Yes Functional Status (Recalled from RN notes): WNL History of Present Illness Provider Complaint: 43 YR OLD FEMALE PRESENTS FOR RT KNEE PAIN. PT STATES SHE WENT BOWLING YESTERDAY AND LAST NIGHT STARTED HAVING PAIN AND SWELLING IN HER RIGHT KNEE. NO KNOWN INJURY. SHE DOES REPORT A HISTORY WITH PROBLEMS WITH HER RIGHT KNEE Related Data Home Medications Medication Instructions Recorded Confirmed omeprazole 40 mg capsule,delayed 40 mg PO DAILY 06/20/23 08/07/23 release pramipexole 0.75 mg tablet 0.75 mg PO DAILY 06/20/23 08/07/23 Previous Rx's Medication Instructions Recorded amoxicillin 875 mg tablet 875 mg PO Q12H #20 tabs 08/07/23 ibuprofen 800 mg tablet (IBU) 800 mg PO Q8HP PRN Moderate Pain 08/07/23 #30 tabs prednisone 20 mg tablet 20 mg PO BID #10 tabs 01/16/24 Allergies Allergy/AdvReac Type Severity Reaction Status Date / Time No Known Allergies Allergy Verified 05/15/22 09:12 Worker's Comp Is this a Worker's Comp case?: No [facility] Disclaimer: The information contained in this section may have been updated after the patient was seen, as this information can be updated by other users. 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) Smoking Status: Current every day smoker alcohol intake: never current occupational status: employed Travel in the last 8 weeks: None ROS Obtained: Yes All systems reviewed & no additional complaints except as documented Constitutional Constitutional: Reports system reviewed and no additional complaints, except as documented Eyes Eyes: Reports system reviewed and no additional complaints, except as documented ENT Ears, Nose, Mouth, and Throat: Reports system reviewed and no additional complaints, except as documented Cardiovascular Cardiovascular: Reports system reviewed and no additional complaints, except as documented Respiratory Respiratory: Reports system reviewed and no additional complaints, except as documented Gastrointestinal Gastrointestingal: Reports system reviewed and no additional complaints, except as documented Musculoskeletal Musculoskeletal: Reports system reviewed and no additional complaints, except as documented, Reports as per HPI, Reports arthralgias, Reports joint swelling and Reports limited range of motion Integumentary/Breasts Skin/Breast: Reports system reviewed and no additional complaints, except as documented Neurologic Neurologic: Reports system reviewed and no additional complaints, except as documented Endocrine Endocrine: Reports system reviewed and no additional complaints, except as documented Hematologic/Lymphatic Henatologic/Lymphatic: Reports system reviewed and no additional complaints, except as documented Physical Exam General General appearance: alert and in no apparent distress Head Head exam: atraumatic Eye Eye exam: Present normal appearance ENT ENT exam: Present normal exam Respiratory Respiratory exam: Present normal lung sounds bilaterally Cardiovascular Cardiovascular exam: Present regular rate and normal rhythm Expanded Lower Extremity Exam Right: Leg image: 2 1. TENDER Neurological Exam Neurological exam: Present alert and oriented X3 Skin Skin exam: Present warm and intact Medical Decision Making Medical Records Medical records reviewed: Yes I reviewed the patient's medical records. Marshall Inquiry Pt receiving controlled substance: No Marshall was queried for this patient: No Vital Signs: 01/16/24 12:00 Temperature 98.2 F Temperature Source Oral Pulse Rate [Left Brachial] 114 H Respiratory Rate 20 Blood Pressure [Left Arm] 151/88 H Blood Pressure Mean [Left Arm] 109 Blood Pressure Source [Left Arm] Automatic Cuff Blood Pressure Position [Left Arm] Sitting 02 Sat by Pulse Oximetry 98 Oxygen Delivery Method Room Air Orders (Tests/Meds): ORDERS Category Date Time Status Knee XR right 3 views [XR knee RT 3V] Stat Exams 01/16/24 11:29 Completed Radiology Data #1: Image(s): Knee Image Reviewed: Yes I reviewed the patient's radiology results and Yes I have reviewed radiologist's interpretation
[2024-01-16 12:31] VITALS: BP 151/88; PULSE 114; RESP 20; TEMP 36.8; O2SAT 98
== END 2024-01-16 12:36 | disposition home or self-care (01) ==
PROVIDERS: Emergency Provider Nurse Practitioner Family; PCP Internal Medicine Adolescent Medicine
DX: M25.561 Pain in right knee (principal); F17.210 Nicotine dependence, cigarettes, uncomplicated
CPT/HCPCS: 73562; 99212; 99214; G0463

== ENCOUNTER 2024-03-17 07:59 | Emergency (ER) | payer BC, SELFPAY ==
--- NOTE | 2024-03-17 08:15 | EXP.UTC ---
Discharge Plan Disposition Patient Disposition: Home, Self-Care Condition: Good Prescriptions Prescriptions: New ondansetron 4 mg Tablet,Disintegrating 4 mg PO Q8H PRN (Reason: Nausea) Qty: 10 0RF benzonatate 100 mg capsule 100 mg PO TIDP PRN (Reason: Cough) Qty: 30 0RF No Action amoxicillin [amoxicillin] 875 mg tablet 875 mg PO Q12H Qty: 20 0RF ibuprofen [IBU] 800 mg tablet 800 mg PO Q8HP PRN (Reason: Moderate Pain) Qty: 30 0RF prednisone 20 mg tablet 20 mg PO BID Qty: 10 0RF omeprazole 40 mg capsule,delayed release(DR/EC) 40 mg PO DAILY Patient Comments: TAKE 1 CAPSULE BY MOUTH ONCE DAILY pramipexole 0.75 mg tablet 0.75 mg PO DAILY Patient Comments: TAKE 1 TABLET BY MOUTH EVERY DAY Referrals Follow up/Referrals: Krishna Suggs MD [Primary Care Provider] - See instructions Activity Restrictions/Add. Instructions Additional Instructions/Restrictions: Drink plenty of fluids. Take tylenol or ibuprofen(if you can take this) for pain or fever. Take the medications as directed. Follow up with your regular doctor. GO TO THE ER FOR ANY WORSENING SYMPTOMS Clinical Impressions Clinical Impression: Acute viral syndrome Stand Alone Forms Stand Alone Forms: Work/School Release Instructions Patient Instructions: DI for Viral Syndrome Print Language Print Language: Armenian Discharge ED Provider: Keaton Barahona [facility] General Stated complaint: sore throat, cough, fever, body aches Time Seen by Provider: 03/17/24 08:15 Related Data Home Medications ?Medication ?Instructions ?Recorded ?Confirmed omeprazole 40 mg capsule,delayed 40 mg PO DAILY 06/20/23 08/07/23 release pramipexole 0.75 mg tablet 0.75 mg PO DAILY 06/20/23 08/07/23 Previous Rx's ?Medication ?Instructions ?Recorded amoxicillin 875 mg tablet 875 mg PO Q12H #20 tabs 08/07/23 ibuprofen 800 mg tablet (IBU) 800 mg PO Q8HP PRN Moderate Pain 08/07/23 #30 tabs prednisone 20 mg tablet 20 mg PO BID #10 tabs 01/16/24 benzonatate 100 mg capsule 100 mg PO TIDP PRN Cough #30 caps 08/09/24 ondansetron 4 mg disintegrating 4 mg PO Q8H PRN Nausea #10 tabs 03/17/24 tablet Allergies Allergy/AdvReac Type Severity Reaction Status Date / Time No Known Allergies Allergy Verified 05/15/22 09:12 [facility] Disclaimer: The information contained in this section may have been updated after the patient was seen, as this information can be updated by other users. 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) Smoking Status: Current every day smoker alcohol intake: never current occupational status: employed Travel in the last 8 weeks: None ROS Obtained: Yes All systems reviewed & no additional complaints except as documented Constitutional Constitutional: Reports chills and Reports fever(s) Eyes Eyes: Denies eye discharge ENT Ears, Nose, Mouth, and Throat: Reports as per HPI Cardiovascular Cardiovascular: Denies chest pain Respiratory Respiratory: Denies chest congestion and Reports cough Gastrointestinal Gastrointestingal: Reports nausea; Denies abdominal pain, constipation, cramping, diarrhea or vomiting Musculoskeletal Musculoskeletal: Denies arthralgias Integumentary/Breasts Skin/Breast: Denies rash Neurologic Neurologic: Denies paresthesias Physical Exam General General appearance: alert and in no apparent distress Head Head exam: atraumatic, normocephalic and normal inspection Eye Eye exam: Present normal appearance, PERRL and EOMI ENT ENT exam: Present normal exam, normal oropharynx, mucous membranes moist, TM's normal bilaterally and normal external ear exam Neck Neck exam: Present normal inspection, full ROM and trachea midline; Absent meningismus or lymphadenopathy Chest Chest inspection: Present normal inspection and symmetric chest wall rise; Absent tenderness Respiratory Respiratory exam: Present normal lung sounds bilaterally; Absent respiratory distress Cardiovascular Cardiovascular exam: Present regular rate and normal rhythm; Absent JVD Abdominal Exam Abdominal exam: Present soft and normal bowel sounds; Absent distention, tenderness or guarding Extremities Exam Extremities exam: Present normal inspection, full ROM and normal capillary refill; Absent calf tenderness Back Exam Back exam: Present normal inspection; Absent tenderness Neurological Exam Neurological exam: Present alert and oriented X3 Psychiatric Psychiatric exam: Present normal affect and normal mood Skin Skin exam: Present warm, dry, intact and normal color Lymphatic Lymphatic Findings: no adenopathy Medical Decision Making Medical Records Medical records reviewed: No I reviewed the patient's medical records. Marshall Inquiry Pt receiving controlled substance: No Lab Data Lab results reviewed: Yes I reviewed the patient's lab results.
[2024-03-17 08:23] VITALS: BP 138/110; PULSE 124; RESP 20; TEMP 37.4; O2SAT 100; BMI 30.4
[2024-03-17 08:52] VITALS: BP 138/110; PULSE 124; RESP 20; TEMP 37.4; O2SAT 100
[2024-03-17 09:16] LABS: Influenza A, PCR Not Detected (NotDetected); Influenza B, PCR Not Detected (NotDetected)
[2024-03-17 10:25] LABS: Coronavirus 19, PCR Detected (NotDetected)
== END 2024-03-17 08:52 | disposition home or self-care (01) ==
PROVIDERS: Emergency Provider Nurse Practitioner Family; PCP Internal Medicine Adolescent Medicine
DX: U07.1 COVID-19 (principal); R50.9 Fever, unspecified; R07.0 Pain in throat; R05.9 Cough, unspecified
CPT/HCPCS: 87636; 99212; 99214; G0463

== ENCOUNTER 2024-04-04 11:00 | Outpatient (RCR) | payer BC, SELFPAY ==
--- NOTE | 2024-02-29 13:39 | HMH.PTOPEV ---
PT Outpatient Evaluation Rehab PT Outpatient Evaluation Start: 02/29/24 09:51 Freq: Status: Active Protocol: Document 02/29/24 09:52 VESTA (Rec: 02/29/24 12:31 VESTA [email or web address]) E-signed By Laura Mcguire, PT Outpatient Therapy Subjective History Subjective History This is an initial evaluation for 43 y/o female, Jodi Clark, who presents with c/o acute R knee pain. Pt had an x-ray that showed no acute findings. Pt reports these symptoms started after she went bowling on January 14. Pt reports after she got home, she elevated and iced her knee d/t discomfort and swelling. Pt reports she was not able to bear weight the next day. Pt went to urgent care and recieved steroids. Pt then went to ER d/t significant knee pain. Pt has been having R knee pain since. Pt reports occasional clicking and locking in anterior knee. Pt reports difficulty running, sitting long periods, walking long periods, stairs, squatting, kneeling, and weight bearing. Pt with antalgic gait. Pt does report history of R knee pain but usually lasted ~5 days then went away. Pt also has plantar fasciitis and hx of elbow and B RC surgery. New diagnosis of cancer in past 12 No months? Chief Complaint Pain,Stiff,Clicks Symptom Type Ache,Sharp Symptoms Relieved By Heat,Ice,Prescription Meds Symptoms Aggravated By Sitting,Standing,Physical Activity,Twisting,Walking, Lifting Prior Functional Limitations Reaching,Lifting,Recreation Activity Current Functional Limitations Reaching,Lifting,Driving, Standing,Sitting,Squatting, Recreation Activity,Walking, Stairs,Bending/Stooping Symptom Description Intermittent Level of pain today (0-10) 0 Pain scale - at its best (0-10) 0 Pain scale - at its worst (0-10) 8 Hip/Knee Eval Gait Observation General Gait Pattern Observation Antalgic Gait Assistive Device Assistive Devices None / NA Palpation Tenderness right Knee Palpation Finding Tenderness Knee Palpation Overall Comment anterior-medial knee (1/4), distal HS (2/4) MMT left Hip Flexion Strength Grade 5 Normal Hip Abduction Strength Grade 5 Normal Hip Adduction Strength Grade 5 Normal Knee Extension Strength Grade 5 Normal Knee Flexion Strength Grade 5 Normal right Hip Flexion Strength Grade 4- Good- Hip Abduction Strength Grade 4- Good- Hip Adduction Strength Grade 4- Good- Hip Extension Strength Grade 4- Good- Knee Extension Strength Grade 4- Good- Knee Flexion Strength Grade 4- Good- ROM Knee Extension Active Range of Motion ( 0/neutral degrees) Knee Flexion Active Range of Motion ( 100 deg degrees) Knee ROM Limitations Soft Tissue Tightness,Pain Special Tests Knee Apley Compression Test Positive Right Knee Anterior Drawer Test Negative Right Hernadez 90/90 Test (PCL) Negative Right Knee Covarrubias Test Negative Right Knee Anterior Luis A Test Negative Right Knee Valgus Stress Test Negative Right Knee Varus Stress Test Negative Right Knee Marquez Test Positive Right Patella Apprehension Test Negative Right Patellar Grind Test Positive Right Lower Extremity Functional Index Activities Today, do you or would you have any difficulty at all with: a.Any of your usual work, housework or Moderate difficulty school activities b. Your usual hobbies, recreational or Quite a bit of difficulty sporting activities c. Getting into or out of the bath Quite a bit of difficulty d. Walking between rooms A little bit of difficulty e. Putting on your shoes or socks A little bit of difficulty f. Squatting Extreme difficulty or unable to perform activity g. Lifting an object, like a bag of Moderate difficulty groceries from the floor h. Performing light activities around No difficulty your home i. Performing heavy activities around Quite a bit of difficulty your home j. Getting into or out of a car A little bit of difficulty k. Walking 2 blocks A little bit of difficulty l. Walking a mile Quite a bit of difficulty m. Going up or down 10 stairs (about 1 Quite a bit of difficulty flight of stairs) n. Standing for 1 hour Moderate difficulty o. Sitting for 1 hour Moderate difficulty p. Running on even ground Extreme difficulty or unable to perform activity q. Running on uneven ground Extreme difficulty or unable to perform activity r. Making sharp turns while running fast Extreme difficulty or unable to perform activity s. Hopping Extreme difficulty or unable to perform activity t. Rolling over in bed No difficulty LEFI Score Lower Extremity Functional Index Score 33 Outpatient Therapy Assessment Impairments Problems/Impairmments Palpation Tenderness,Impaired Range of Motion,Impaired Strength,Impaired Transfers, Impaired Gait Pattern,Impaired Walking,Impaired Standing, Impaired Sitting,Impaired Stair Climbing,Impaired Incline Stepping,Impaired Squatting,Impaired Bending, Impaired Recreational Activities,Impaired Running, Impaired Jumping,Subjective C/ O Pain Prognosis Rehab Potential Good Comment Pt presents with c/o acute R knee pain. Pt tested + for special tests involving meniscus and patello-femoral joint. Special tests for ligaments were negative. Pt winced in pain during Apley's grind test and Marquez's test but no click or catch was felt/reported. Pt does present with a click/pop in patella with repeated knee flexion/ extension. PT evaluated patella tracking and it demo'd inconsistent poor tracking upon AROM flexion/extension. Pt TTP distal HS muscles and anterior-medial knee. No swelling noted upon evaluation . Pt with impaired R knee and R hip strength. Pt would benefit from skilled OP PT to address deficits and decrease knee pain. PT with plan to treat and refer back to PCP for further imaging if symptoms persist or worsen. Clinical Impression Consistent with Diagnosis Yes Short Term Goals Number of Weeks 4 Increase Range of Motion Yes: Improve knee flexion AROM to 110 to improve function. Increase Strength Yes: Improve R hip and knee MMT to 4/5 to improve functional strength. Improve LEFI Score Yes: Improve by 5 points to improve LE function. Decrease Subjective C/O Pain Yes: At worst pain in 48 hours 6/10 to decrease pain severity. 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 Increase Strength Yes: R knee and hip MMT 5/5 to maximize strength. Improve Ability to Climb Stairs Yes: Negotiate 12 6 steps with min-no pain reports. Improve Ability to Squat Yes: Perform 5 functional squats with good mechanics and min-no pain reports. Improve LEFI Score Yes: Improve to 45/80 to improve LE functioning and improve QOL. Decrease Subjective C/O Pain Yes: At worst pain in 48 hours 3/10 to minimize pain severity. Patient to be Ind w/ Advanced HEP Yes Outpatient Therapy Plan of Care Treatment Plan May Include Therapeutic Exercise Including Home Yes Exercise Program Manual Therapy Techniques Yes Neuromuscular Re-education Yes Therapeutic Activities to Return to Yes Previous Functional/Work Level Gait Training Yes ADL/Self Care Education Yes Dry Needling Yes Thermal Modalities Yes Electrical Stimulation Yes Ultrasound/Phonophoresis Yes Iontophoresis Yes Orthotics/Bracing/Splinting Yes Vasopneumatic Compression Pump Yes Massage Yes Eval/Re-Eval Yes Aquatic Therapy Yes Frequency Times per week 2x Duration Number of Weeks 6-8 weeks Addendums This patient is a candidate for social No or vocational rehab? Patient/Guardian verbally acknowledges Yes understanding of treatment program and consents to further treatment? Patient/Guardian verbally acknowledges Yes understanding of diagnosis, prognosis and goals for treatment? Eval Complexity PT Charges 31153 - Low Complexity Shoulder/Elbow Eval Shoulder Objective Measurements Elbow Objective Measurements PHYSICIAN CERTIFICATION: I certify the specified therapy services for Jodi Saenzrc are required, authorized, and reviewed every 30 days.
--- NOTE | 2024-03-29 15:43 | HMH.RHREAS ---
Rehab Reassessment Rehab OP Re-assessment Start: 02/29/24 09:51 Freq: Status: Active Protocol: Document 03/29/24 15:10 VESTA (Rec: 03/29/24 15:40 VESTA [id number]) E-signed By Laura Mcguire, PT Lower Extremity Functional Index Activities Today, do you or would you have any difficulty at all with: a.Any of your usual work, housework or No difficulty school activities b. Your usual hobbies, recreational or A little bit of difficulty sporting activities c. Getting into or out of the bath A little bit of difficulty d. Walking between rooms No difficulty e. Putting on your shoes or socks No difficulty f. Squatting Moderate difficulty g. Lifting an object, like a bag of No difficulty groceries from the floor h. Performing light activities around No difficulty your home i. Performing heavy activities around A little bit of difficulty your home j. Getting into or out of a car No difficulty k. Walking 2 blocks No difficulty l. Walking a mile No difficulty m. Going up or down 10 stairs (about 1 Moderate difficulty flight of stairs) n. Standing for 1 hour No difficulty o. Sitting for 1 hour No difficulty p. Running on even ground Extreme difficulty or unable to perform activity q. Running on uneven ground Extreme difficulty or unable to perform activity r. Making sharp turns while running fast Extreme difficulty or unable to perform activity s. Hopping Moderate difficulty t. Rolling over in bed No difficulty LEFI Score Lower Extremity Functional Index Score 59 Rehab Re-assessment Subjective Subjective Pt reports she feels 70% better since IE. Pt reports her pain at worst has been 7/10 over past 48 hours. Pt reports 0/10 knee pain at arrival to PT. Pt reports she only has trouble performing steps and squatting. Pt has not been back to doctor yet. Objective Objective Notes RLE MMTs: Hip FLEX = 4/5 Hip ABD = 4/5 Hip ADD = 4/5 Knee FLEX =4/5 Knee EXT =4/5 R knee AROM: 0-120 LEFS: 59/80 Knee palpation: 1/4 TTP posterior-medial HS insertion. Apley's: +/painful Marquez's: +/painful Assessment Progress Assessment Progressing as Expected Assessment Notes This is a reassessment for Jodi Clark who presents to PT for c/o acute R knee pain. Since IE, pt has been seen for 6 treatment visits that have consisted of modalities prn, education, and therapeutic exercises focusing on knee/hip strength and ROM. Pt with good attendance to scheduled PT visits and reports adherence to HEP. Since IE, pt with improvements in subjective complaints of pain, R knee AROM, and RLE strength. Pt still presents with impaired stair negotiation and pain with full R knee flexion especially when weight-bearing (squatting). Apley's test and Marquez's test still presenting as + d/t pain reports and wincing. Pt also reports having painful clicking intermittently. PT educated pt to refer back to PCP to further inquire about MRI. Pt would continue to benefit from skilled outpatient physical therapy to address remaining deficits and achieve LTGs. Patient goals met ST/5 MET 1) Improve knee flexion AROM to 110 to improve function: MET 2) Improve R hip and knee MMT to 4/5 to improve functional strength: MET 3) Improve by 5 points to improve LE function: MET 4) At worst pain in 48 hours to decrease pain severity NOT MET 5) IND with HEP: MET LTG: In progress Plan Plan Continue POC Frequency of Therapy 2x Duration of therapy 3 weeks Time and Billing Re-Eval Time 10 Re-Eval Billing Units 1 PHYSICIAN CERTIFICATION: I certify the specified therapy services for Jodi Clark are required, authorized, and reviewed every 30 days.
== END 2024-04-04 11:05 | disposition home or self-care (01) ==
LOC: PT 11:00
PROVIDERS: Visit Provider Internal Medicine Adolescent Medicine
DX: M25.561 Pain in right knee (principal)
CPT/HCPCS: 97014; 97110; 97163; 97164; 97530; G0283

== ENCOUNTER 2024-04-18 08:36 | Outpatient (CLI) | payer BC, SELFPAY ==
--- NOTE | 2024-04-18 | MR_ITS ---
FINAL REPORT CLINICAL HISTORY: RIGHT KNEE PAIN FINDINGS: Multiplanar MR imaging of the right knee was performed without contrast. There is a tear of the posterior horn of the lateral meniscus. The medial meniscus is intact. The anterior and posterior cruciate ligaments are intact. The medial collateral ligament and lateral ligamentous complex are intact. The patellar and quadriceps tendons are intact. There is no evidence of fracture. No focal abnormality is identified of the articular cartilage. Small joint effusion is seen. The musculature is intact. No soft tissue mass or cyst is identified. IMPRESSION: Tear posterior horn lateral meniscus. Reviewed, Interpreted and Dictated by Tal Curran III, MD Transcribed by Whit Aaron Authenticated and [facility]
== END 2024-04-18 23:59 | disposition home or self-care (01) ==
LOC: RAD 08:36
PROVIDERS: PCP Internal Medicine Adolescent Medicine; Visit Provider Internal Medicine Adolescent Medicine
DX: M25.561 Pain in right knee (principal)
CPT/HCPCS: 73721

== ENCOUNTER 2024-05-05 10:54 | Outpatient (CLI) | payer BC, SELFPAY ==
--- NOTE | 2024-05-05 11:37 | ECG_ITS ---
APPROVED REPORT Exam: Resting ECG HR:109 bpm ECG Measurements Heart Rate 109 AXES WI 138 P 35 QRSd 85 QRS 5 QT 318 T 34 QTc 382 Conclusion SINUS TACHYCARDIA ABNORMAL RHYTHM ECG UNCONFIRMED REPORT Electronically signed by : Krishna Suggs MD 05/06/2024 08:32:18
== END 2024-05-05 23:59 | disposition home or self-care (01) ==
LOC: PREOP 10:54
PROVIDERS: PCP Internal Medicine Adolescent Medicine; Visit Provider Orthopaedic Surgery
DX: Z01.810 Encounter for preprocedural cardiovascular examination (principal); S83.206A Unspecified tear of unspecified meniscus, current injury, right knee, initial encounter
CPT/HCPCS: 93005

== ENCOUNTER 2024-05-10 08:18 | Day surgery (SDC) | payer BC, SELFPAY ==
[2024-05-05 11:22] VITALS: BMI 30.9
[2024-05-10] VITALS (11 sets, daily range): BP systolic 122–158; BP diastolic 71–95; PULSE 93–118; RESP 14–20; TEMP 6.1–43; O2SAT 96–100
[2024-05-10] MEDS: LACTATED RINGERS 1000ML 1,000 ML 100 ML IV (08:46)
--- NOTE | 2024-05-10 09:23 | P.PNANES_ITS ---
[facility] Disclaimer: The information contained in this section may have been updated after the patient was seen, as this information can be updated by other users. 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 PTSD (post-traumatic stress disorder) Anemia Anxiety Surgical History Hx of LASIK History of hysteroscopy History of oral surgery History of shoulder surgery History of elbow surgery History of section Family History Other Family history of breast cancer Family history of dementia Family history of diabetes mellitus Family history of heart disease Family history of hypothyroidism Family history of seizures Social History Smoking Status: Former smoker alcohol intake: never substance use type: denies use current occupational status: employed Travel in the last 8 weeks: None [facility] Anesthesia Checklist Patient Identification Patient Identification: Arm Band Structural Data Admitted From: Home Planned Operative Procedure/s: Right Knee Arthroscopy with Partial Lateral Meniscectomy Consent for Planned Operative Procedure(s) Verified: Yes Verified Documents: Surgical Consent and History and Physical NPO Status Verified Time NPO: 00:00 Additional verifications Anesthesia Reactions: No Hx Blood Transfusions: No Blood Transfusion Reaction: No Airway Assessment Mallampati Score:: Class II C-Spine Mobility Assessed: Yes TMJ Mobility Assessed: Yes Dentition: Good Dentition Neurological Assessment Level of Consciousness: Awake, Alert and Appropriate Anesthesia Plan Anesthesia Risk discussed: Yes Anesthesia Plan: Verified ASA Class: II Anesthesia Type: General
[2024-05-10 09:36] LABS: HCG Qualitative, Serum Negative (Negative)
[2024-05-10] MEDS: CEFAZOLIN SODIUM 2 GM in 0.9 % SODIUM CHLORIDE 100 ML IV (11:32)
[2024-05-10] MEDS: BUPIVACAINE 0.25% 30ML VIAL 75 MG (12:05)
[2024-05-10] MEDS: RINGERS SOLUTION,LACTATED 6,000 ML 6000 ML IR (12:05)
--- NOTE | 2024-05-10 12:34 | P.OP_ITS ---
Date of procedure: 05/10/24 Pre-op Diagnosis:: Right knee lateral meniscus tear Post-op Diagnosis:: Same along with grade III chondromalacia lateral femoral condyle and kissing lesion of the lateral femoral cartilage next to complex lateral meniscus tear Procedure performed:: Right knee arthroscopy with partial lateral meniscectomy Surgeon:: Pavan Black DO Mechanical Project Engineer(s):: Daren MORLEY CHUCKING AND SAWING MACHINE OPERATOR:: Keaton Cuevas Anesthesia: GETA Estimated blood loss (mL): 0 Operative findings:: Large complex macerated tear of the posterior horn and body of the lateral meniscus along with grade III chondromalacia and kissing lesion of the lateral femoral condyle adjacent to large complex meniscus tear Operative note:: Patient identified preoperatively. Right knee marked with yes my initials. Transferred operative suite. Placed upon operating bed. General anesthesia was administered. Airway secured. Right knee was prepped and draped in normal sterile fashion within the knee shelton once prepped and draped final operative timeout performed to identify proper patient procedure and extremity. Everyone involved the case agreed. There were no counter indications to beginning. She did receive preoperative antibiotics. Marking pen was used to joni the bony landmarks knee and standard portal sites. Esmarch was used to exsanguinate extremity. Pneumatic tourniquet inflated to 300 mmHg. Skin knife is used to incise standard anterior lateral portal and blunt with trocar was placed in patellofemoral joint exchange with a camera. I swept directly to the medial joint line where the anterior medial portal was made with the help of an 18-gauge spinal needle. This was then exchanged with a probe. Send the medial joint line the medial meniscus was intact medial cartilage was intact. I spoken to the intercondylar notch the ACL was seen and intact. I then swept into the lateral joint line within the lateral joint line there was evidence of a large macerated tear of the posterior horn and body of the lateral meniscus. The meniscal tissue was macerated and flipped on itself. There was a kissing lesion on the lateral femoral condyle where this adjacent tissue was rubbing the femoral cartilage. Unfortunately the tear and anatomy of the tear was not amendable to repair so partial lateral meniscectomy was performed back to stable rim and also unfortunately a large portion of the posterior horn of the lateral meniscus had to be sacrificed. There was some fraying cartilage on the lateral femoral condyle adjacent to the meniscus tear light chondroplasty was performed only to remove the frayed cartilage. Once partial meniscectomy was completed I swept to the medial lateral gutters and back in the patellofemoral joint no further pathology was seen. Camera removed. Joint drained. Local anesthesia infiltrated the portal sites. Skin closed with nylon stitch sterile dressing placed from toe to thigh patient waken anesthesia taken recovery in stable condition. Condition: stable Disposition: PACU Complications:: None apparent
--- NOTE | 2024-05-10 12:40 | P.PNANES_ITS ---
[facility] Anesthesia Record Part I Anesthesia Record I Intake, IV Amount: 600 Hydration: Adequate Estimated blood loss (mL): 15 Urine output (mL): 0 Blood Products used (#): none Blood Pressure: 134/77 SaO2: 96 Pulse Rate: 98 Airway Patency: Patent Respiratory Rate: 14 Temperature: 97 F Patient is:: Drowsy and Stable Stable to PACU at:: 12:35
[2024-05-10] MEDS: HYDROMORPHONE 2MG/ML SYRINGE 0.5 MG IV ×4 (12:50→13:05)
--- NOTE | 2024-05-11 09:16 | P.PNANES_ITS ---
[facility] Anesthesia Record Part II Anesthesia Record Part II Discharge Time: 13:05 Destination: [facility] PACU nurse assessment reviewed?: Yes Patient Condition:: Good Anesthesia Complications:: None Swallowing reflex intact?: Yes Airway Patency: Patent Cyanosis?: No Blood Pressure: 126/84 SaO2: 96 Respiratory Rate: 18 Pulse Rate: 104 Temperature: 97.0 F Mental Status: Alert & Oriented Pain level:: 4 Nausea and/or vomitting:: None Intake, IV Amount: 600 Hydration: Adequate
[2024-05-11 09:17] VITALS: BP 126/84; PULSE 104; RESP 18; TEMP 36.1; O2SAT 96
== END 2024-05-10 13:40 | disposition home or self-care (01) ==
PROVIDERS: PCP Internal Medicine Adolescent Medicine; Visit Provider Orthopaedic Surgery
PROC: (CPT 29870; principal; 2024-05-10 10:00)
DX: S83.271A Complex tear of lateral meniscus, current injury, right knee, initial encounter (principal); X58.XXXA Exposure to other specified factors, initial encounter; Y93.54 Activity, bowling; Y92.39 Other specified sports and athletic area as the place of occurrence of the external cause; Y99.8 Other external cause status; M94.261 Chondromalacia, right knee; S89.81XA Other specified injuries of right lower leg, initial encounter
CPT/HCPCS: 29881; 84703; 96374; J0690; J1100; J1171; J2250; J2405; J3010; J7120

== ENCOUNTER 2024-08-03 07:58 | Emergency (ER) | payer BC, SELFPAY ==
[2024-08-03 08:10] VITALS: BP 133/87; PULSE 107; RESP 18; TEMP 36.9; O2SAT 100; BMI 32.1
--- NOTE | 2024-08-03 08:17 | EXP.UTC ---
Discharge Plan Disposition Patient Disposition: Home, Self-Care Condition: Good Prescriptions Prescriptions: New benzonatate 100 mg capsule 100 mg PO TID PRN (Reason: cough) Qty: 30 0RF methylprednisolone [Medrol (Gus)] 4 mg tablets,dose pack See Rx Instructions .Route .COMPLEX 6 Days Qty: 21 0RF Rx Instructions: taper pack; amoxicillin 875 mg tablet 875 mg PO Q12H 10 Days Qty: 20 0RF No Action omeprazole 40 mg capsule,delayed release(DR/EC) 40 mg PO DAILY Patient Comments: TAKE 1 CAPSULE BY MOUTH ONCE DAILY pramipexole 0.75 mg tablet 0.75 mg PO DAILY Patient Comments: TAKE 1 TABLET BY MOUTH EVERY DAY cetirizine [Zyrtec] 10 mg Tablet 10 mg PO DAILY phentermine 37.5 mg capsule 37.5 mg PO DAILY Patient Comments: TAKE 1 CAPSULE BY MOUTH DAILY ferrous sulfate [iron] 325 mg (65 mg iron) Tablet 325 mg PO DAILY biotin 500 mcg Capsule 1,000 mcg PO DAILY hydrocodone-acetaminophen 5-325 mg tablet 1 tab PO Q4H PRN (Reason: Postop pain) Qty: 24 0RF Referrals Follow up/Referrals: Krishna Suggs MD [Primary Care Provider] - See instructions Activity Restrictions/Add. Instructions Additional Instructions/Restrictions: *Monitor Temp, Over the counter Motrin or Tylenol as directed/as needed Tylenol every 4 hours and Motrin every 6 hours (as long as your family doctor has told you that you can take it) for fever or pain. and straight to ER if unable to lower temp less than 101.0 after medication given *Warm salt water gargles may help to soothe the throat *Throat Lozenges? *Warm fluids like tea with honey may help to soothe the throat? *Sleep elevated *Humidifier/Vaporizer *Bromfed may cause drowsiness. Know how it effects you (your child) before driving, caring for small child, or sending your child to school. Not other antihistamines/allergy medications while taking bromfed Your throat swab was sent for culture. Those results are typically sent to your primary care. Be sure to follow up in 2-3 days with your family doctor/primary care physician if no improvement so they can review those result and treat if necessary. If you don?t have a primary care doctor, I recommend you get one but in the mean time, you will have to return to a walk in clinic Follow up IMMEDIATELY for new or worsening symptoms or no Noticeable improvement over the next 48-72 hours. 911 for difficulty breathing or swallowing Clinical Impressions Clinical Impression: Bacterial tonsillitis Instructions Patient Instructions: Amoxicillin, Sore Throat Print Language Print Language: Indonesian Discharge ED Provider: Bree Vicente [facility] [place] HPI General Stated complaint: sore throat, body aches, chills, cough Time Seen by Provider: 08/03/24 08:17 History of Present Illness Provider Complaint: Patient states that she has been sick on and off for a couple weeks States that she started yesterday with sore throat, nasal congestion and head congestion States that today her left side of her throat was swollen and hurting when she swallows so today she came in Related Data Home Medications ?Medication ?Instructions ?Recorded ?Confirmed omeprazole 40 mg capsule,delayed 40 mg PO DAILY 06/20/23 07/13/24 release pramipexole 0.75 mg tablet 0.75 mg PO DAILY 06/20/23 07/13/24 cetirizine 10 mg tablet (Zyrtec) 10 mg PO DAILY 04/12/24 07/13/24 phentermine 37.5 mg capsule 37.5 mg PO DAILY 04/12/24 07/13/24 ferrous sulfate 325 mg (65 mg 325 mg PO DAILY 05/05/24 07/13/24 iron) tablet (iron) biotin 500 mcg capsule 1,000 mcg PO DAILY 05/10/24 07/13/24 Previous Rx's ?Medication ?Instructions ?Recorded hydrocodone 5 mg-acetaminophen 325 1 tab PO Q4H PRN Postop pain #24 05/10/24 mg tablet tabs amoxicillin 875 mg tablet 875 mg PO Q12H 10 days #20 tabs 08/03/24 benzonatate 100 mg capsule 100 mg PO TID PRN cough #30 caps 08/03/24 methylprednisolone 4 mg tablets in See Rx Instructions .Route 08/03/24 a dose pack (Medrol (Gus)) .COMPLEX 6 days #21 tabs Allergies Allergy/AdvReac Type Severity Reaction Status Date / Time latex Allergy Rash Verified 07/13/24 15:13 [facility] Disclaimer: The information contained in this section may have been updated after the patient was seen, as this information can be updated by other users. 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 PTSD (post-traumatic stress disorder) Anemia Anxiety Surgical History Hx of LASIK History of hysteroscopy History of oral surgery History of shoulder surgery History of elbow surgery History of section Family History Other Family history of breast cancer Family history of dementia Family history of diabetes mellitus Family history of heart disease Family history of hypothyroidism Family history of seizures Social History Smoking Status: Former smoker alcohol intake: never substance use type: denies use current occupational status: employed Travel in the last 8 weeks: None Have you lived/traveled outside [place] in past 30 days?: No Contact w/someone who lives/traveled outside US past 30 days?: No Exposure to someone with infectious disease in past 14 days?: No Do you have a fever (greater than 100.4 F or 38 C)?: No Have you tested positive for COVID-19: No Exposed to someone with COVID-19 in past 14 days?: No Do you have a sore throat?: Yes Do you have a cough?: Yes Do you have any weakness?: No Do you have any diarrhea?: No Are you experiencing any unusual bleeding?: No Do you have any muscle aches/pain?: Yes Do you have any abdominal pain?: No Are you experiencing loss of taste or smell?: No ROS Obtained: Yes All systems reviewed & no additional complaints except as documented and Yes Systems reviewed as appropriate & no additional complaints except as documented Constitutional Constitutional: Reports system reviewed and no additional complaints, except as documented, Reports as per HPI and Reports headache(s) ENT Ears, Nose, Mouth, and Throat: Reports system reviewed and no additional complaints, except as documented, Reports as per HPI, Reports headache(s), Reports nasal congestion, Reports sinus pressure and Reports sore throat Cardiovascular Cardiovascular: Reports system reviewed and no additional complaints, except as documented and Reports as per HPI Respiratory Respiratory: Reports system reviewed and no additional complaints, except as documented and Reports as per HPI Gastrointestinal Gastrointestingal: Reports system reviewed and no additional complaints, except as documented and as per HPI Neurologic Neurologic: Reports headache(s) Physical Exam General General appearance: alert and in no apparent distress ENT ENT exam: Present mucous membranes moist Expanded ENT Exam Nose exam: Absent sinus tenderness Throat exam: Present tonsillar erythema (patchy like area noted on left) Respiratory Respiratory exam: Present normal lung sounds bilaterally; Absent respiratory distress or wheezes Cardiovascular Cardiovascular exam: Present regular rate, normal rhythm and normal heart sounds Neurological Exam Neurological exam: Present alert, oriented X3 and normal gait Medical Decision Making Medical Records Screening: Per USPSTF and CDC recommendations, given the prevalence of disease in our region, it is our hospital?s policy to screen for HIV and viral Hepatitis for all patients aged 18 and over and those with ongoing risk factors. Marshall Inquiry Pt receiving controlled substance: No Marshall was queried for this patient: No Lab Data Lab results reviewed: Yes I reviewed the patient's lab results.
[2024-08-03 08:38] VITALS: BP 133/87; PULSE 107; RESP 18; TEMP 36.9; O2SAT 100
[2024-08-03 19:02] LABS: UTC Influenza A Antigen Negative (Negative); UTC Influenza B Antigen Negative (Negative); UTC Strep Screen (Rapid) Negative (Negative)
== END 2024-08-03 08:40 | disposition home or self-care (01) ==
PROVIDERS: Emergency Provider Nurse Practitioner; PCP Internal Medicine Adolescent Medicine
DX: J03.80 Acute tonsillitis due to other specified organisms (principal); R09.81 Nasal congestion; R05.9 Cough, unspecified; R51.9 Headache, unspecified; M79.10 Myalgia, unspecified site
CPT/HCPCS: 87804; 87880; 99212; G0381

== ENCOUNTER 2024-08-21 06:37 | Emergency (ER) | payer BC, SELFPAY ==
[2024-08-21 06:38] VITALS: BP 153/115; PULSE 133; RESP 20; TEMP 36.8; O2SAT 99; BMI 32.1
--- NOTE | 2024-08-21 06:47 | XR_ITS ---
FINAL REPORT CLINICAL HISTORY: felt pop and pain in calf COMPARISON: None FINDINGS: AP and lateral views of the right tibia and fibula were obtained. There is no acute fracture of the right tibia or fibula. The soft tissues are normal. IMPRESSION: No acute osseous abnormality of the right tibia or fibula. Reviewed, Interpreted and Dictated by Jefferson Bess MD Transcribed by Amira Cherry Authenticated and [facility]
[2024-08-21] MEDS: METHOCARBAMOL 500MG TABLET 500 MG PO (06:52)
[2024-08-21] MEDS: ACETAMINOPHEN 500MG TAB 1000 MG PO (06:52)
[2024-08-21] MEDS: KETOROLAC 30MG/ML VIAL 30 MG IV (06:52)
[2024-08-21 07:00] VITALS: BP 122/93; PULSE 108; O2SAT 99
--- NOTE | 2024-08-21 07:03 | HMH.EDGENADL ---
Discharge Plan Disposition Patient Disposition: Home, Self-Care Prescriptions Prescriptions: New methocarbamol 750 mg tablet 1,500 mg PO TID 5 Days Qty: 30 0RF No Action benzonatate 100 mg capsule 100 mg PO TID PRN (Reason: cough) Qty: 30 0RF methylprednisolone [Medrol (Gus)] 4 mg tablets,dose pack See Rx Instructions .Route .COMPLEX 6 Days Qty: 21 0RF Rx Instructions: taper pack; amoxicillin 875 mg tablet 875 mg PO Q12H 10 Days Qty: 20 0RF omeprazole 40 mg capsule,delayed release(DR/EC) 40 mg PO DAILY Patient Comments: TAKE 1 CAPSULE BY MOUTH ONCE DAILY pramipexole 0.75 mg tablet 0.75 mg PO DAILY Patient Comments: TAKE 1 TABLET BY MOUTH EVERY DAY cetirizine [Zyrtec] 10 mg Tablet 10 mg PO DAILY phentermine 37.5 mg capsule 37.5 mg PO DAILY Patient Comments: TAKE 1 CAPSULE BY MOUTH DAILY ferrous sulfate [iron] 325 mg (65 mg iron) Tablet 325 mg PO DAILY biotin 500 mcg Capsule 1,000 mcg PO DAILY hydrocodone-acetaminophen 5-325 mg tablet 1 tab PO Q4H PRN (Reason: Postop pain) Qty: 24 0RF Referrals Follow up/Referrals: Krishna Suggs MD [Primary Care Provider] - See instructions Activity Restrictions/Add. Instructions Additional Instructions/Restrictions: Call your family doctor to establish care for this visit to the emergency department and schedule follow-up within 48 hours to ensure improvement. If you have any worsening of your condition or any other concerning signs or symptoms, return to the emergency department or your primary care doctor for further evaluation. Do low range of motion exercises when not wearing boot during the day and when relaxing. Follow up with Dr. Black regarding this visit to the emergency department and further imaging. Clinical Impressions Clinical Impression: Rupture of medial head of left gastrocnemius Print Language Print Language: French Discharge ED Provider: [facility] HPI <Elton Vázquez MD - Last Filed: 08/21/24 07:10> General Chief complaint: Extremity Injury, Lower Stated complaint: AO 0600 right calf pain Time Seen by Provider: 08/21/24 06:40 Mode of Arrival: Ambulatory Source of Information: Patient Limitations: No Limitations Description of Symptoms (Recalled from ER Triage Doc. by RN): pt reports she was leaving for work when she stepped out of the door she felt a sharp pop in the back of her right thigh. pt is post op from knee surgery History of Present Illness HPI narrative: 43-year-old female with history of knee surgery in May presents for acute calf pain. She reports she was walking at her front door when she stepped and felt a severe pop in her calf. She denies any bony pain, including pain at the knee or the ankle. Reports that she is out of put any weight on it and has any pain with flexion or extension. Related Data Home Medications ?Medication ?Instructions ?Recorded ?Confirmed omeprazole 40 mg capsule,delayed 40 mg PO DAILY 06/20/23 07/13/24 release pramipexole 0.75 mg tablet 0.75 mg PO DAILY 06/20/23 07/13/24 cetirizine 10 mg tablet (Zyrtec) 10 mg PO DAILY 04/12/24 07/13/24 phentermine 37.5 mg capsule 37.5 mg PO DAILY 04/12/24 07/13/24 ferrous sulfate 325 mg (65 mg 325 mg PO DAILY 05/05/24 07/13/24 iron) tablet (iron) biotin 500 mcg capsule 1,000 mcg PO DAILY 05/10/24 07/13/24 Previous Rx's ?Medication ?Instructions ?Recorded hydrocodone 5 mg-acetaminophen 325 1 tab PO Q4H PRN Postop pain #24 05/10/24 mg tablet tabs amoxicillin 875 mg tablet 875 mg PO Q12H 10 days #20 tabs 08/03/24 benzonatate 100 mg capsule 100 mg PO TID PRN cough #30 caps 08/03/24 methylprednisolone 4 mg tablets in See Rx Instructions .Route 08/03/24 a dose pack (Medrol (Gus)) .COMPLEX 6 days #21 tabs methocarbamol 750 mg tablet 1,500 mg (2 x 750 mg) PO TID 5 08/21/24 days #30 tabs Allergies Allergy/AdvReac Type Severity Reaction Status Date / Time chlorhexidine Allergy Rash Verified 08/21/24 06:55 latex Allergy Rash Verified 07/13/24 15:13 [facility] <Elton Vázquez MD - Last Filed: 08/21/24 07:10> [facility] Disclaimer: The information contained in this section may have been updated after the patient was seen, as this information can be updated by other users. 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 PTSD (post-traumatic stress disorder) Anemia Anxiety Surgical History Hx of LASIK History of hysteroscopy History of oral surgery History of shoulder surgery History of elbow surgery History of section Family History Other Family history of breast cancer Family history of dementia Family history of diabetes mellitus Family history of heart disease Family history of hypothyroidism Family history of seizures Social History Smoking Status: Former smoker alcohol intake: never substance use type: denies use current occupational status: employed Travel in the last 8 weeks: None Have you lived/traveled outside [place] in past 30 days?: No Contact w/someone who lives/traveled outside US past 30 days?: No Exposure to someone with infectious disease in past 14 days?: No Do you have a fever (greater than 100.4 F or 38 C)?: No Have you tested positive for COVID-19: No Exposed to someone with COVID-19 in past 14 days?: No Do you have a sore throat?: No Do you have a cough?: No Do you have any weakness?: No Do you have any diarrhea?: No Are you experiencing any unusual bleeding?: No Do you have any muscle aches/pain?: No Do you have any abdominal pain?: No Are you experiencing loss of taste or smell?: No Other 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 Have you received the Flu Vaccine for this season: No Have you received the Pneumonia Vaccine: No <Elton Vázquez MD - Last Filed: 08/21/24 07:10> ROS Obtained: Yes All systems reviewed & no additional complaints except as documented Physical Exam <Elton Vázquez MD - Last Filed: 08/21/24 07:10> General General appearance: alert and in no apparent distress Head Head exam: atraumatic and normocephalic Eye Eye exam: Present normal appearance, PERRL and EOMI ENT ENT exam: Present normal oropharynx and normal external ear exam Neck Neck exam: Present normal inspection and full ROM Chest Chest inspection: Present normal inspection and symmetric chest wall rise; Absent tenderness Respiratory Respiratory exam: Present normal lung sounds bilaterally; Absent respiratory distress Cardiovascular Cardiovascular exam: Present regular rate and normal rhythm Abdominal Exam Abdominal exam: Present soft; Absent distention, tenderness or guarding Extremities Exam Extremities exam: Present normal inspection and calf tenderness (Point tenderness to the mid calf); Absent full ROM (Severe pain in the calf with range of motion of the ankle), edema or joint swelling Back Exam Back exam: Present normal inspection; Absent tenderness Neurological Exam Neurological exam: Present alert and oriented X3; Absent motor sensory deficit Psychiatric Psychiatric exam: Present normal affect and normal mood Skin Skin exam: Present warm, dry and normal color Lymphatic Lymphatic Findings: no adenopathy Medical Decision Making <Elton Vázquez MD - Last Filed: 08/21/24 07:10> Medical Records Medical records reviewed: Yes I reviewed the patient's medical records. Screening: Per USPSTF and CDC recommendations, given the prevalence of disease in our region, it is our hospital?s policy to screen for HIV and viral Hepatitis for all patients aged 18 and over and those with ongoing risk factors. [place] Inquiry Pt receiving controlled substance: No [place] was queried for this patient: No Vital Signs: 08/21/24 06:38 08/21/24 07:00 08/21/24 07:30 Temperature 98.2 F Temperature Source Temporal Artery Scan Pulse Rate 108 H 114 H Pulse Rate [Right] 133 H Respiratory Rate 20 Blood Pressure 122/93 H 115/87 Blood Pressure [Right Arm] 153/115 H Blood Pressure Mean [Right Arm] 127 02 Sat by Pulse Oximetry 99 99 99 Oxygen Delivery Method Room Air Room Air Room Air 08/21/24 08:01 08/21/24 08:30 08/21/24 09:07 Temperature 98.2 F Temperature Source Pulse Rate 100 H 107 H 105 H Pulse Rate [Right] Respiratory Rate 20 Blood Pressure 159/85 H 145/86 H 130/90 Blood Pressure [Right Arm] Blood Pressure Mean [Right Arm] 02 Sat by Pulse Oximetry 100 99 Oxygen Delivery Method Room Air Room Air Room Air Lab Data Lab results reviewed: Yes I reviewed the patient's lab results. Orders (Tests/Meds): ED MEDICATIONS Discontinued Medications Generic Name Dose Route Start Last Admin Trade Name Freq PRN Reason Stop Dose Admin Acetaminophen 1,000 mg 08/21/24 06:47 08/21/24 06:52 Acetaminophen 500mg Tab PO 08/21/24 06:48 1,000 mg ONCE ONE Administration Ketorolac Tromethamine 30 mg 08/21/24 06:47 08/21/24 06:52 Ketorolac 30mg/Ml Vial IV 08/21/24 06:48 30 mg ONCE ONE Administration Methocarbamol 500 mg 08/21/24 06:47 08/21/24 06:52 Methocarbamol 500mg Tablet PO 08/21/24 06:48 500 mg ONCE ONE Administration ORDERS Category Date Time Status Fibula/tibia XR right 2 views [XR tibia fibula RT 2V] Exams 08/21/24 06:47 Completed Stat POCUS Point of Care (ER Only) Stat Exams 08/21/24 08:12 Completed Medical Decision Narrative: 43-year-old female with history of knee surgery in May presents for acute onset right calf pain after feeling a pop while putting weight on it. Reports no pain in the knee or ankle. Reports that her leg was otherwise fine prior to this. History was obtained via interactive discussion with patient. On arrival, patient is [afebrile, hemodynamically stable, satting appropriately, alert, oriented x4, GCS 15], moving all extremities spontaneously. Full physical exam performed and significant for focal calf tenderness, pain to range of motion of the calf Differential includes but is not limited to musculoskeletal strain, fracture dislocation. Patient was given Tylenol Toradol and Robaxin for symptomatic management and correction of underlying abnormalities. Workup initiated including 2 view tib-fib. At this time care handed off to oncoming physician. <Dung Wells MD - Last Filed: 08/21/24 10:22> Vital Signs: 08/21/24 06:38 08/21/24 07:00 08/21/24 07:30 Temperature 98.2 F Temperature Source Temporal Artery Scan Pulse Rate 108 H 114 H Pulse Rate [Right] 133 H Respiratory Rate 20 Blood Pressure 122/93 H 115/87 Blood Pressure [Right Arm] 153/115 H Blood Pressure Mean [Right Arm] 127 02 Sat by Pulse Oximetry 99 99 99 Oxygen Delivery Method Room Air Room Air Room Air 08/21/24 08:01 08/21/24 08:30 08/21/24 09:07 Temperature 98.2 F Temperature Source Pulse Rate 100 H 107 H 105 H Pulse Rate [Right] Respiratory Rate 20 Blood Pressure 159/85 H 145/86 H 130/90 Blood Pressure [Right Arm] Blood Pressure Mean [Right Arm] 02 Sat by Pulse Oximetry 100 99 Oxygen Delivery Method Room Air Room Air Room Air Orders (Tests/Meds): ED MEDICATIONS Discontinued Medications Generic Name Dose Route Start Last Admin Trade Name Zora PRN Reason Stop Dose Admin Acetaminophen 1,000 mg 08/21/24 06:47 08/21/24 06:52 Acetaminophen 500mg Tab PO 08/21/24 06:48 1,000 mg ONCE ONE Administration Ketorolac Tromethamine 30 mg 08/21/24 06:47 08/21/24 06:52 Ketorolac 30mg/Ml Vial IV 08/21/24 06:48 30 mg ONCE ONE Administration Methocarbamol 500 mg 08/21/24 06:47 08/21/24 06:52 Methocarbamol 500mg Tablet PO 08/21/24 06:48 500 mg ONCE ONE Administration ORDERS Category Date Time Status Fibula/tibia XR right 2 views [XR tibia fibula RT 2V] Exams 08/21/24 06:47 Completed Stat POCUS Point of Care (ER Only) Stat Exams 08/21/24 08:12 Completed Medical Decision Narrative: 43-year-old female with history of knee surgery in May presents for acute onset right calf pain after feeling a pop while putting weight on it. Reports no pain in the knee or ankle. Reports that her leg was otherwise fine prior to this. History was obtained via interactive discussion with patient. On arrival, patient is afebrile, hemodynamically stable, satting appropriately, alert, oriented x4, GCS 15, moving all extremities spontaneously. Full physical exam performed and significant for focal calf tenderness, pain to range of motion of the calf Differential includes but is not limited to musculoskeletal strain, fracture dislocation. Patient was given Tylenol Toradol and Robaxin for symptomatic management and correction of underlying abnormalities. Workup initiated including 2 view tib-fib. At this time care handed off to oncoming physician. Priscilla: I assumed primary responsibility for this patient after signout from previous physician. On my evaluation, patient in mild to moderate pain when trying to dorsiflex her ankle, but much more comfortable and plantar flexing. Neurovascularly intact. She has tenderness about her mid calf medially. X-rays on independent interpretation are negative. Patient feeling a little better after medications. Bedside [id number] ultrasound was performed and patient does have evidence of near complete tear of medial head of gastrocnemius at the level of the Achilles tendon. Able to trace distally down to the Achilles tendon approximately and does not appear to be a full tear. Soleus muscle also has edema, could be partial tear of the soleus muscle as well, but difficult exam. Patient was placed in a boot, but was recommended that she do not completely immobilize it and when she is at home, laying down to practice low range of motion with her toes up and down gently to prevent muscle tightening. Recommend she follow-up with Dr. Black for MRI, she voiced understanding. because patient at baseline without signs or symptoms of clinical decompensation, deemed appropriate for discharge. Results were relayed to patient who voiced understanding and were agreeable to outpatient management and follow up. I discussed my clinical impression with patient and answered all questions. At this time, the evidence for any other entities in the differential is insufficient to warrant any further testing or ED observation. This was explained as well. Advisory was given that persistent or worsening symptoms require further evaluation. I confirmed the understanding of this discussion. Priscilla Procedure: Limited soft tissue ultrasound Indication: Soft tissue swelling, leg pain Identified structures: Location: Posterior right lower leg at gastrocnemius and soleus, Achilles tendon Findings: Achilles tendon intact. Lateral head of gastrocnemius intact, however appears to be partial versus near complete tear of medial head of gastrocnemius. Edema around soleus muscle without discreet tear Impression: Partial tear medial head of right gastrocnemius with intact Achilles tendon Images were saved to permanent archive The study was technically adequate Soft Tissue CPT Codes: CPT Neck: 99365-61 CPT Upper extremity: 45838-08 CPT Axilla: 65146-05 CPT Chest wall: 71547-86 CPT Breast: 51851-05-WI/LT (complete), 94963-56-BE/LT (limited), CPT Upper Back: 92165-79 CPT Lower Back: 25474-07 CPT Abdominal Wall: 80299-29 CPT Pelvic Wall: 49217-21 CPT Lower Extremity: 74815-33 CPT Other Soft Tissue: 53361-90 This study was performed by me, and I personally interpreted all images/videos. Based on my clinical judgement, these images were adequate and did not necessitate further imaging. Procedures <Elton Vázquez MD - Last Filed: 08/21/24 07:10> Risk/Benefits of Procedure(s) Were Explained: Yes Critical Care <Elton Vázquez MD - Last Filed: 08/21/24 07:10> Critical Care Time Critical Care Time: No
[2024-08-21 07:30] VITALS: BP 115/87; PULSE 114; O2SAT 99
[2024-08-21 08:01] VITALS: BP 159/85; PULSE 100; O2SAT 100
[2024-08-21 08:30] VITALS: BP 145/86; PULSE 107; O2SAT 99
[2024-08-21 09:07] VITALS: BP 130/90; PULSE 105; RESP 20; TEMP 36.8; O2SAT 98
--- NOTE | 2024-08-21 16:25 | PC.NURSE ---
[facility] called to verify the d/c prescriptions. Reviewed this with the pharmacist
== END 2024-08-21 09:11 | disposition home or self-care (01) ==
PROVIDERS: Emergency Provider Emergency Medicine; PCP Internal Medicine Adolescent Medicine
DX: S86.111A Strain of other muscle(s) and tendon(s) of posterior muscle group at lower leg level, right leg, initial encounter (principal); M79.661 Pain in right lower leg
CPT/HCPCS: 73590; 96374; 99283; J1885

== ENCOUNTER 2024-11-01 14:56 | Outpatient (CLI) | payer SELFPAY ==
--- NOTE | 2024-11-01 15:13 | XR_ITS ---
FINAL REPORT CLINICAL HISTORY: right shoulder pain COMPARISON: None FINDINGS: For views of the right shoulder were obtained. There is no fracture or dislocation. The joint space is preserved. The AC joint is intact. Soft tissues are unremarkable. IMPRESSION: No acute osseous abnormality of the right shoulder. Reviewed, Interpreted and Dictated by Jacqui Uriostegui MD Transcribed by Sherron Yoon Authenticated and . [facility]
== END 2024-11-01 23:59 | disposition home or self-care (01) ==
LOC: RAD 14:59
PROVIDERS: PCP Internal Medicine Adolescent Medicine; Visit Provider Orthopaedic Surgery
DX: M25.511 Pain in right shoulder (principal)
CPT/HCPCS: 73030

== ENCOUNTER 2024-11-20 16:05 | Outpatient (CLI) | payer OTHER, SELFPAY ==
--- NOTE | 2024-11-20 | CA_ITS ---
FINAL REPORT TECHNIQUE: Multiple transverse and longitudinal images were performed of the right femoral-popliteal deep venous system with augmentation and compression maneuvers. CLINICAL HISTORY: RLE PAIN AND EDEMA,PT HAD RT KNEE SURGERY 06/01 AND TORN RT CALF MUSCLE 09/02 FINDINGS: Right lower extremity duplex ultrasound demonstrates normal flow in the deep venous system. There is no abnormal echogenicity to suggest thrombus. There is normal compression and augmentation. IMPRESSION: No evidence of right DVT. Reviewed, Interpreted and Dictated by Bernard Martinez MD Transcribed by Kristina Thompson Authenticated and '[facility]
== END 2024-11-20 23:59 | disposition home or self-care (01) ==
LOC: RT 16:06
PROVIDERS: PCP Internal Medicine Adolescent Medicine; Visit Provider Internal Medicine Adolescent Medicine
DX: R00.2 Palpitations (principal); M79.661 Pain in right lower leg; R60.0 Localized edema; Z98.890 Other specified postprocedural states
CPT/HCPCS: 93225; 93226; 93971

== ENCOUNTER 2025-05-16 15:07 | Outpatient (CLI) | payer OTHER, SELFPAY ==
--- NOTE | 2025-05-16 15:08 | XR_ITS ---
FINAL REPORT CLINICAL HISTORY: right knee pain FINDINGS: AP, lateral and oblique views of the right knee were obtained. There is no prior exam for comparison. There is no acute osseous abnormality of the right knee. A tiny calcification adjacent to the medial tibial spine appears chronic. There is mild degenerative joint disease. No joint effusion is seen. IMPRESSION: No acute osseous abnormality of the right knee. Consider MRI if pain persists. Reviewed, Interpreted and Dictated by Jacqui Uriostegui MD Transcribed by Sherron Yoon Authenticated and [facility]
== END 2025-05-16 23:59 | disposition home or self-care (01) ==
LOC: RAD 15:08
PROVIDERS: PCP Internal Medicine Adolescent Medicine; Visit Provider Orthopaedic Surgery
DX: M25.561 Pain in right knee (principal)
CPT/HCPCS: 73562

== ENCOUNTER 2025-05-29 07:36 | Outpatient (CLI) | payer OTHER, SELFPAY ==
--- NOTE | 2025-05-29 07:45 | MR_ITS ---
FINAL REPORT TECHNIQUE: Multiplanar MR without contrast CLINICAL HISTORY: Right Knee pain.hx surgery lateral meniscus. lateral knee pain. pops. FINDINGS: Articular cartilage: Diffuse thinning of the articular cartilage, most pronounced in the lateral compartment. Marrow signal: Unremarkable Joint fluid: Small joint effusion. Menisci: Absent posterior horn lateral meniscus along with portions of the lateral meniscal body, presumably related to previous meniscectomy. Medial meniscus is normal. Ligaments: Collateral, cruciate and patellofemoral ligaments intact Tendons: Quadriceps and patellar tendon normal IMPRESSION: Partial lateral meniscectomy. Degenerative changes, most pronounced in the lateral compartment. Reviewed, Interpreted and Dictated by Jefferson Bess MD Transcribed by Whit Aaron Authenticated and [facility]
== END 2025-05-29 23:59 | disposition home or self-care (01) ==
LOC: RAD 07:37
PROVIDERS: PCP Internal Medicine Adolescent Medicine; Visit Provider Orthopaedic Surgery
DX: M17.11 Unilateral primary osteoarthritis, right knee (principal); M23.91 Unspecified internal derangement of right knee; Z98.890 Other specified postprocedural states
CPT/HCPCS: 73721

== ENCOUNTER 2025-07-26 14:46 | Outpatient (CLI) | payer OTHER, SELFPAY ==
[2025-07-26 15:51] LABS: Hematocrit 42.5 % (37.0-47.0); Hemoglobin 14.3 g/dL (12.2-16.2); Immature Granulocytes % 0.3 %; Mean Corpuscular HGB Conc 33.6 g/dL (31.8-35.4); Mean Corpuscular Hemoglobin 29.0 pg (27.0-31.2); Mean Corpuscular Volume 86.2 fl (81-99); Nucleated Red Blood Cells % 0 %; Platelet Count 413 K/mm3 (142-424); Red Blood Count 4.93 M/mm3 (4.20-5.40); Red Cell Distribution Width-SD 39.3 fL; White Blood Count 10.6 K/mm3 (4.8-10.8)
[2025-07-26 16:07] LABS: Alanine Aminotransferase 18 U/L (12-78); Albumin Level 4.1 g/dl (3.5-5.0); Albumin/Globulin Ratio 1.5 (1.1-1.8); Alkaline Phosphatase 87 U/L (38-126); Anion Gap 10.0 mEq/L (5-15); Aspartate Amino Transferase 23 U/L (14-36); Bilirubin,Total 0.4 mg/dl (0.2-1.3); Blood Urea Nitrogen 14 mg/dl (7-17); Calcium 9.1 mg/dl (8.4-10.2); Carbon Dioxide 24 mmol/L (22.0-30.0); Chloride 107 mmol/L (98-107); Creatinine,Serum 0.70 mg/dl (0.52-1.04); Estimated Glomerular Filt Rate 90 ml/min (>60); GFR (African American) 109 ML/MIN (>60); Globulin 2.7 g/dL (1.3-3.2); Glucose 104 mg/dl (74-100); Potassium 4.0 mmoL/L (3.5-5.1); Sodium 137 mmol/L (136-145); Total Protein,Serum 6.8 g/dl (6.3-8.2)
[2025-07-26 16:24] LABS: Free Thyroxine Index 2.5 ug/dL (5.93-13.13); T4 (Thyroxine) 8.0 ug/dl (5.53-11.0); Triiodothryronine (T3) Uptake 31 % (23.5-40.5)
[2025-07-26 16:37] LABS: 25-OH Vitamin D, Total 38.0 ng/mL (30-100)
[2025-07-26 16:38] LABS: Thyroid Stimulating Hormone 0.25 uIU/mL (0.465-4.68)
[2025-07-26 16:55] LABS: Vitamin B12 403 pg/mL (239-931)
[2025-07-26 22:43] LABS: Hemoglobin A1C 5.2 % (4.0-6.0)
[2025-07-28 03:37] LABS: FSH 36.0 mIU/mL (.); LH 30.8 mIU/mL (.)
== END 2025-07-26 23:59 | disposition home or self-care (01) ==
LOC: LAB 14:46
PROVIDERS: PCP Internal Medicine Adolescent Medicine; Visit Provider Internal Medicine Adolescent Medicine
DX: E55.9 Vitamin D deficiency, unspecified (principal); Z13.1 Encounter for screening for diabetes mellitus; N95.1 Menopausal and female climacteric states
CPT/HCPCS: 36415; 80053; 82306; 82607; 83001; 83002; 83036; 84425; 84436; 84443; 84479; 85025